=== PATIENT | male | born 1955 | race Caucasian/White ===

== ENCOUNTER 2016-05-08 10:58 | Observation (INO) | payer OTHER ==
[2016-05-08] VITALS (10 sets, daily range): BP systolic 100–148; BP diastolic 60–77; PULSE 81–110; RESP 16–28; TEMP 97.1–98.5; O2SAT 94–98
[~2016-05-08] VITALS: Ht 177.8 cm; Wt 116.1 kg
[2016-05-08 11:59] LABS: AUTOMATED NEUTROPHIL # 9.4 TH/MM3 (1.8-7.7); BASOPHIL # 0.1 TH/MM3 (0-0.2); BASOPHIL % 0.5 % (0.0-2.0); EOSINOPHIL # 0.2 TH/MM3 (0-0.4); EOSINOPHIL % 1.7 % (0.0-4.0); HEMATOCRIT 44.5 % (39.0-51.0); HEMO FLAGS DIFF FINAL; LYMPH % 11.1 % (9.0-44.0); LYMPHOCYTE # 1.3 TH/MM3 (1.0-4.8); MEAN CELL VOLUME 96.2 FL (80.0-100.0); MEAN CORPUSCULAR HEMOGLOBIN 32.4 PG (27.0-34.0); MEAN CORPUSCULAR HGB CONC 33.7 % (32.0-36.0); MONO % 5.3 % (0.0-8.0); NEUT % 81.4 % (16.0-70.0); PLATELET COUNT 257 TH/MM3 (150-450); RED BLOOD COUNT 4.62 MIL/MM3 (4.50-5.90); RED CELL DISTRIBUTION WIDTH 14.5 % (11.6-17.2); WHITE BLOOD COUNT 11.5 TH/MM3 (4.0-11.0)
[2016-05-08 12:26] LABS: ALT (GPT) 22 U/L (12-78); AST (GOT) 19 U/L (15-37); BICARBONATE 19.7 MEQ/L (21.0-32.0); BLOOD UREA NITROGEN 19 MG/DL (7-18); GLOMERULAR FILTRATION RATE 58 ML/MIN (>89)
[2016-05-08 12:27] LABS: ALKALINE PHOSPHATASE 101 U/L (45-117); TOTAL BILIRUBIN ADULT 0.5 MG/DL (0.2-1.0)
--- NOTE | 2016-05-08 12:28 | PD ---
HPI Chief Complaint: Respiratory Symptoms Time Seen by Provider: 12:23 Travel History International Travel<30 days: No Contact w/Intl Traveler<30days: No Traveled to known affect area: No History of Present Illness HPI 60-year-old male that presents to the ED for evaluation of shortness of breath has been progressively getting worse for the past 5 days. Per patient today she went to the [place] for evaluation of the shortness of breath. On examination apparently patient was found to have an O2 sat of 92 he was complaining of some chest pressure as well as being tachycardic. Patient does have a history of A. fib and takes Coumadin as well as antiarrhythmics for this. Patient states that he has had no issues with this. Per patient for the past 5 days his been having some cough and runny nose with sneezing and progressively worsening shortness of breath. Per patient he has no inhalers or oxygen at home. He does have a remote history of smoking. No history of GA or STEMI. No history of stenting. Denies any abdominal pain. Nausea or vomiting. Per patient he does describe having pressure on his chest but not really pain. Patient was given one breathing treatment in the ambulance on the way here with relief of some of the shortness of breath but he still has the chest pressure and some shortness of breath present. He has no allergies to medication. He denies any other medical problems at this time. Patient was sent here by the [place] for evaluation of this. Per patient the pain in the chest is 6 out of 10 and feels more like a pressure. Does not radiate. Nothing makes it better or worse. PFSH Past Medical History Hx Anticoagulant Therapy: Yes (COUMADIN ) Atrial Fibrillation: Yes Cardiovascular Problems: Yes (A-FIB ) High Cholesterol: Yes Diabetes: Yes Patient Takes Glucophage: Yes Diminished Hearing: No GERD: Yes Gout: Yes Hypertension: Yes Medical other: Yes (OBESITY) Musculoskeletal: Yes (LOWER BACK PAIN ) Neurologic: Yes (DB NEUROPATHY) Tetanus Vaccination: Unknown Influenza Vaccination: No Social History Alcohol Use: No Tobacco Use: No (QUIT 1996) Substance Use: No Allergies-Medications (Allergen,Severity, Reaction): Coded Allergies: No Known Allergies (Unverified , 05/08/16) Reported Meds & Prescriptions Reported Meds & Active Scripts Active Reported Diltiazem (Diltiazem HCl) 120 Mg Tab 120 Mg PO DAILY Ranitidine (Ranitidine HCl) 300 Mg Tab 300 Mg PO HS Metformin (Metformin HCl) 500 Mg Tab 500 Mg PO BIDPC With meals Loratadine 10 Mg Tab 10 Mg PO DAILY Gemfibrozil 600 Mg Tab 600 Mg PO BIDAC Take 30 minutes prior to breakfast and dinner. Allopurinol 300 Mg Tab 300 Mg PO BID Diclofenac Topical 1% Gel 1 Applic TOPICAL QID Warfarin 7.5 Mg Tab 7.5 Mg PO DAILY Warfarin 5 Mg Tab 5 Mg PO DAILY Omeprazole 20 Mg Tab 20 Mg PO DAILY Lisinopril 40 Mg Tab 40 Mg PO DAILY Salsalate 500 Mg Tab 500 Mg PO BID Oxycodone (Oxycodone HCl) 5 Mg Cap 5 Mg PO Q8H PRN Review of Systems General / Constitutional: No: Fever, Chills, Weight Gain, Weight Loss, Other Eyes: No: Diploplia, Blurred Vision, Photophobia, Drainage, Redness, Foreign Body Sensation, Pain, Tearing, Blind Spots, Visual changes, Blindness, Other HENT: Positive: Sore Throat, Rhinitis, Congestion, No: Headaches, Vertigo, Lightheadedness, Rhinorrhea, Nosebleed, Neck Stiffness, Neck Pain, Masses, Gingival Bleeding, Dental Difficulties, Ear Discharge, Earache, Other Cardiovascular: Positive: Chest Pain or Discomfort, Irregular Rhythm, Tachycardia, No: Palpitations, Diaphoresis, Syncope, Dyspnea on exertion, Varicosities, Edema, Cyanosis, Varicosities, Phlebitis, Claudication, Other Respiratory: Positive: Cough, Shortness of Breath, Wheezing, Sneezing, No: Orthopnea, Hemoptysis, Stridor, Night Sweats, Pleuritic Pain, Other Gastrointestinal: No: Nausea, Vomiting, Diarrhea, Abdominal Pain, Hematemesis, Hematochezia, Constipation, Changes in Bowel Habits, Indigestion, Dysphagia, Loss of Appetite, Other Genitourinary: No: Urgency, Frequency, Dysuria, Nocturia, Hematuria, Decreased Urinary Output, Oliguria, Hesitancy, Dribbling, Incontinence, Pelvic Pain, Flank Pain, Dyspareunia, Discharge, Dysmenorrhea, Menorrhagia, Metorrhagia, Vaginal Bleeding, Other Musculoskeletal: No: Myalgias, Arthralgias, Limited ROM, Weakness, Cramping, Edema, Pain, Atrophy, Other Skin: No Rash, No Itching, No Dryness, No Lumps, No Hives, No Change in Pigmentation, No Change in nails, No Alopecia, No Lesions, No Breast Lumps, No Breast Tenderness, No Breast Swelling, No Other Neurologic: No: Weakness, Dizziness, Syncope, Focal Abnormalities, Coordination Problem, Tremor, Ataxia, Headache, Change in Mentation, Slurred Speech, Paresthesia, Incontinence, Seizures, Sensory Disturbance, Other Psychiatric: No: Anxiety, Depression, Suicidal Ideations, Disorder of Thought, Mood Disorder, Substance Abuse, Homicidal Ideation, Other Endocrine: No: Heat Intolerance, Cold Intolerance, Polyuria, Polydipsia, Other Hematologic/Lymphatic: No: Easy Bruising, Lymph Node Enlargement, Other Physical Exam Narrative GENERAL: SKIN: Warm and dry. HEAD: Atraumatic. Normocephalic. EYES: Pupils equal and round 4 mm reactive to light and accommodation. No scleral icterus. No injection or drainage. ENT: No nasal bleeding or discharge. Mucous membranes pink and moist. Tongue is midline. No uvula deviation. NECK: Trachea midline. No JVD. CARDIOVASCULAR: Irregular rate and rhythm. No murmurs, S3, S4 noted. RESPIRATORY: No accessory muscle use. Expiratory rales heard in all lung herrera.. Breath sounds equal bilaterally. GASTROINTESTINAL: Abdomen soft, non-tender, nondistended. Hepatic and splenic margins not palpable. MUSCULOSKELETAL: Extremities without clubbing, cyanosis, or edema. No obvious deformities. Full range of motion of the upper and lower extremities bilaterally. 2+ pulses bilaterally. NEUROLOGICAL: Awake and alert. No obvious cranial nerve deficits. Motor grossly within normal limits. Five out of 5 muscle strength in the arms and legs. Normal speech. PSYCHIATRIC: Appropriate mood and affect; insight and judgment normal. Data Data Last Documented VS Vital Signs Date Time Temp Pulse Resp B/P Pulse Ox O2 Delivery O2 Flow Rate FiO2 05/08/16 14:49 100 17 117/69 95 Room Air 05/08/16 12:00 4 05/08/16 11:05 98.5 Orders Chest, Single Ap (05/08/16 ) Complete Blood Count With Diff (05/08/16 11:25) Comprehensive Metabolic Panel (05/08/16 11:25) Electrocardiogram (05/08/16 ) Troponin I (05/08/16 12:15) B-Type Natriuretic Peptide (05/08/16 12:15) Prothrombin Time / Inr (Pt) (05/08/16 12:15) Act Partial Throm Time (Ptt) (05/08/16 12:15) Albuterol Neb (Albuterol Neb) (05/08/16 12:30) Ceftriaxone Inj (Rocephin Inj) (05/08/16 14:00) Azithromycin Inj (Zithromax Inj) (05/08/16 14:00) Blood Culture (05/08/16 14:17) Influenzae A/B Antigen (05/08/16 14:17) Labs Laboratory Tests Test 05/08/16 05/08/16 11:35 12:29 White Blood Count 11.5 TH/MM3 Red Blood Count 4.62 MIL/MM3 Hemoglobin 15.0 GM/DL Hematocrit 44.5 % Mean Corpuscular Volume 96.2 FL Mean Corpuscular Hemoglobin 32.4 PG Mean Corpuscular Hemoglobin 33.7 % Concent Red Cell Distribution Width 14.5 % Platelet Count 257 TH/MM3 Mean Platelet Volume 9.9 FL Neutrophils (%) (Auto) 81.4 % Lymphocytes (%) (Auto) 11.1 % Monocytes (%) (Auto) 5.3 % Eosinophils (%) (Auto) 1.7 % Basophils (%) (Auto) 0.5 % Neutrophils # (Auto) 9.4 TH/MM3 Lymphocytes # (Auto) 1.3 TH/MM3 Monocytes # (Auto) 0.6 TH/MM3 Eosinophils # (Auto) 0.2 TH/MM3 Basophils # (Auto) 0.1 TH/MM3 CBC Comment DIFF FINAL Differential Comment Sodium Level 139 MEQ/L Potassium Level 3.7 MEQ/L Chloride Level 108 MEQ/L Carbon Dioxide Level 19.7 MEQ/L Anion Gap 11 MEQ/L Blood Urea Nitrogen 19 MG/DL Creatinine 1.26 MG/DL Estimat Glomerular Filtration 58 ML/MIN Rate Random Glucose 158 MG/DL Calcium Level 9.1 MG/DL Total Bilirubin 0.5 MG/DL Aspartate Amino Transf 19 U/L (AST/SGOT) Alanine Aminotransferase 22 U/L (ALT/SGPT) Alkaline Phosphatase 101 U/L Troponin I LESS THAN 0.02 NG/ML B-Type Natriuretic Peptide 126 PG/ML Total Protein 7.3 GM/DL Albumin 3.2 GM/DL Prothrombin Time 31.5 SEC Prothromb Time International 2.7 RATIO Ratio Activated Partial 47.4 SEC Thromboplast Time MDM Medical Decision Making Medical Screen Exam Complete: Yes Emergency Medical Condition: Yes Medical Record Reviewed: Yes Interpretation(s) CBC & BMP Diagram 05/08/16 11:35 BNp in the 200s troponin negative INR 2.7 with elevated coags Chest x-ray showed parenchymal changes on the lower left lung. Differential Diagnosis Pneumonia versus edema versus CHF versus STEMI versus an STEMI versus A. fib versus chest pain versus atypical chest pain versus COPD Narrative Course 60-year-old male that presents to the ED for evaluation of chest discomfort and shortness of breath. Patient was properly examined and was found to have signs and symptoms of unclear etiology at this time. He does have risk factors for severe disease. Patient again relieved with one albuterol inhaler. Patient was given 1 more dose here as his ribs appear to be limited but he is still satting in 96. He does appear to be slightly tachypneic although it appears to have improved from before coming. Patient agrees first to proceed with blood work and imaging. Labs and imaging showed what appears to be possible early pneumonia. . Patient still symptomatic with shortness of breath and chest pressure. Case was discussed in my attending who evaluated the patient with me and recommends admission for community-acquired pneumonia as well as monitoring secondary to the A. fib which the heart rate seems to be increasing in the 110s.. Patient was started on Rocephin and azithromycin IV. This was discussed with patient who agrees to admission. Dr. Raymundo agrees to admission. Procedures EKG Prior to Arrival: No Diagnosis Primary Impression: CAP (community acquired pneumonia) Additional Impression: A-fib Qualified Code: I48.2 - Chronic atrial fibrillation Admitting Information Admitting Physician Requests: Admit Elie Domínguez May 08, 2016 12:27
[2016-05-08] MEDS ORDERED: RESP: ALBUTEROL 2.5 MG/3 ML NEB (SCH) INH ONE (12:30)
[2016-05-08] MEDS ORDERED: DICL1GEL7 TOPICAL (12:40)
[2016-05-08] MEDS ORDERED: DILT120T PO (12:40)
[2016-05-08] MEDS ORDERED: RANI300T PO (12:40)
[2016-05-08] MEDS ORDERED: METF500T PO (12:40)
[2016-05-08] MEDS ORDERED: SALS500T PO (12:40)
[2016-05-08] MEDS ORDERED: GEMF600T PO (12:40)
[2016-05-08] MEDS ORDERED: WARF-23 PO (12:40)
[2016-05-08] MEDS ORDERED: OMEP20TA PO (12:40)
[2016-05-08] MEDS ORDERED: LISI40TA PO (12:40)
[2016-05-08] MEDS ORDERED: WARF-21 PO (12:40)
[2016-05-08] MEDS ORDERED: ALLO300T2 PO (12:40)
[2016-05-08] MEDS ORDERED: LORA10TA PO (12:40)
[2016-05-08] MEDS ORDERED: OXYC1CAP PO (12:40)
[2016-05-08 12:44] LABS: APTT (PATIENT) 47.4 SEC (24.3-30.1); INTERNATIONAL NORMALIZED RATIO 2.7 RATIO; PROTHROMBIN TIME - PATIENT 31.5 SEC (9.8-11.6)
[2016-05-08 12:57] LABS: ANION GAP 11 MEQ/L (5-15); CHLORIDE 108 MEQ/L (98-107); POTASSIUM 3.7 MEQ/L (3.5-5.1); SODIUM (NA) 139 MEQ/L (136-145)
--- NOTE | 2016-05-08 13:22 | RADRPT ---
EXAM DATE/TIME: 05/08/2016 11:55 [facility] COMPARISON: No previous studies available for comparison. INDICATIONS : Pain and shortness of breath. MEDICAL HISTORY : None. SURGICAL HISTORY : None. ENCOUNTER: Initial ACUITY: 2 weeks PAIN SCORE: 3/10 LOCATION: Bilateral chest FINDINGS: There are minimal parenchymal changes present in the left base. Right lung is clear. Heart is minim ally enlarged. Pulmonary vascularity is normal. There is no pneumothorax. CONCLUSION: Minimal parenchymal changes left base. Fitz Lowery MD FACR on May 08, 2016 at 13:13 Board Certified Radiologist. This report was verified electronically.
[2016-05-08] MEDS ORDERED: cefTRIAXone INJ 1,000 MG in SODIUM CHLORIDE 0.9% INJ 100 ML IV ONE (14:00)
[2016-05-08] MEDS ORDERED: AZITHROMYCIN INJ 500 MG in SODIUM CHLOR 0.9% 250 ML INJ 250 ML IV ONE (14:00)
[2016-05-08] MEDS ORDERED: ACETAMINOPHEN 325 MG TAB PO PRN ×2 (16:00)
[2016-05-08] MEDS ORDERED: NALOXONE HCL 0.4 MG/ML AMP IV PRN (16:00)
[2016-05-08] MEDS ORDERED: SENNOSIDES 8.6 MG TAB PO PRN (16:00)
[2016-05-08] MEDS ORDERED: SODIUM CHLORIDE 0.9% FLUSH 5 ML FLUSH FLUSH PRN (16:00)
[2016-05-08] MEDS ORDERED: ZOLPIDEM TARTRATE 5 MG TAB PO PRN (16:00)
[2016-05-08] MEDS ORDERED: guaiFENesin/CODEINE SYRUP 200 MG/20 MG/10 ML CUP PO PRN (16:00)
[2016-05-08] MEDS ORDERED: RESP: IPRATROPIUM 0.5 MG/2.5 ML NEB NEB PRN (16:30)
--- NOTE | 2016-05-08 16:33 | HHI.HP ---
[facility] Service [facility] Primary Care Physician May[facility] Admission Diagnosis MAGdevynAndreina larsen Diagnoses: Chief Complaint: Shortness of breath, coughing/sneezing, palpitations Travel History International Travel<30 Days: No Contact w/Intl Traveler <30 Da: No Traveled to Known Affected Are: No History of Present Illness The patient is a 60-year-old male with a past medical history of atrial fibrillation who is presenting to the hospital with shortness of breath, lightheadedness, headache, coughing and sneezing. The patient says he has been having various symptoms for the past week. He believes the symptoms are secondary to atrial fibrillation. He says he is on diltiazem and follows up at the [place] for his atrial fibrillation. He said that this morning he came down with palpitations and went to the [place] clinic where he was referred to the hospital. The patient says that over the past week he has developed symptoms such as shortness of breath, lightheadedness, coughing and sneezing. He says he has not been having a productive cough. He denies any fevers. He has been having left-sided rib pain associated with coughing. He has been tolerating a diet. He says he has not been taking any over the counter medications. He says he did not get the flu shot this year. Review of Systems Constitutional: COMPLAINS OF: Weight loss, DENIES: Fever, Change in appetite Respiratory: COMPLAINS OF: Cough, Shortness of breath, DENIES: Sputum production Cardiovascular: COMPLAINS OF: Dyspnea on Exertion, DENIES: Lower Extremity Edema Gastrointestinal: DENIES: Constipation, Diarrhea Musculoskeletal: COMPLAINS OF: Back pain Neurologic: COMPLAINS OF: Headache Past Family Social History Past Medical History Atrial fibrillation Gout Diabetes Low back pain Allergies: Coded Allergies: No Known Allergies (Unverified , 05/08/16) Active Ordered Medications Current Medications Medications (Trade) Dose Ordered Sig/Mile Route Start Time Stop Time Status Last Admin (Zyloprim) 300 mg BID PO 05/08/16 21:00 UNV (Lopid) 600 mg BIDAC PO 05/08/16 16:00 UNV (Prinivil) 40 mg DAILY PO 05/08/16 16:00 UNV (Claritin) 10 mg DAILY PO 05/09/16 09:00 UNV (Zantac) 300 mg HS PO 05/08/16 21:00 UNV (Coumadin) 5 mg DAILY PO 05/09/16 09:00 UNV Non-Formulary Medication 1 applic QID TOPICAL 05/08/16 18:00 UNV Non-Formulary Medication 500 mg 500 mg BID PO 05/08/16 21:00 UNV (Coumadin Consult Pharmacy) 0 ml @ 0 mls/hr UNSCH OTHER 05/08/16 16:00 UNV Diltiazem HCl 60 mg 60 mg QID PO 05/08/16 16:00 UNV (NS 1000 ml Inj) 1,000 ml @ 100 mls/hr Q10H IV 05/08/16 15:55 05/09/16 01:54 UNV (NS Flush) 2 ml UNSCH PRN FLUSH 05/08/16 16:00 UNV (NS Flush) 2 ml BID FLUSH 05/08/16 21:00 UNV (Tylenol) 650 mg Q4H PRN PO 05/08/16 16:00 UNV (Colace) 100 mg Q12H PO 05/08/16 16:00 UNV (Senokot) 17.2 mg Q12H PRN PO 05/08/16 16:00 UNV (Ambien) 5 mg HS PRN PO 05/08/16 16:00 UNV (Tylenol) 650 mg Q6H PRN PO 05/08/16 16:00 UNV (Roxicodone) 10 mg Q4H PRN PO 05/08/16 16:00 UNV (Roxicodone) 5 mg Q4H PRN PO 05/08/16 16:00 UNV Naloxone HCl 0.4 mg 0.4 mg UNSCH PRN IV 05/08/16 16:00 UNV Ceftriaxone Sodium 1000 mg/ Sodium Chloride 100 ml @ 200 mls/hr Q24H IV 05/09/16 14:00 UNV Azithromycin 500 mg/Sodium Chloride 250 ml @ 250 mls/hr Q24H IV 05/08/16 16:00 UNV (Zithromax Inj/ NS 250 ml Inj) 250 ml @ 250 mls/hr ONCE ONCE IV 05/09/16 14:00 05/09/16 14:59 UNV (Robitussin Ac 200-20 Mg/10 ml Liq) 10 ml Q6H PRN PO 05/08/16 16:00 UNV Family History Lung cancer Social History The patient quit smoking a long time ago. He does not drink alcohol. He denies illicit drug use. Physical Exam Vital Signs Vital Signs Date Time Temp Pulse Resp B/P Pulse Ox O2 Delivery O2 Flow Rate FiO2 05/08/16 14:49 100 17 117/69 95 Room Air 05/08/16 13:00 107 25 109/68 97 Room Air 05/08/16 12:00 110 25 100/60 98 Nasal Cannula 4 05/08/16 11:06 98 Room Air 05/08/16 11:05 98.5 102 28 119/74 98 05/08/16 11:05 98.5 102 28 119/74 98 Nasal Cannula 4 Physical Exam GENERAL: This is a well-nourished, well-developed patient, in no apparent distress. SKIN: No rashes, ecchymoses or lesions. Cool and dry. HEAD: Atraumatic. Normocephalic. No temporal or scalp tenderness. EYES: Pupils equal round and reactive. Extraocular motions intact. No scleral icterus. No injection or drainage. ENT: Nose without bleeding, purulent drainage or septal hematoma. Throat without erythema, tonsillar hypertrophy or exudate. Uvula midline. Airway patent. NECK: Trachea midline. No JVD or lymphadenopathy. Supple, nontender, no meningeal signs. CARDIOVASCULAR: Tachycardic, irregularly irregular rhythm. RESPIRATORY: Crackles appreciated. GASTROINTESTINAL: Abdomen soft, non-tender, nondistended. No hepato-splenomegaly , or palpable masses. No guarding. MUSCULOSKELETAL: Extremities without clubbing, cyanosis, or edema. No joint tenderness, effusion, or edema noted. NEUROLOGICAL: Awake and alert. Cranial nerves II through XII intact. Motor and sensory grossly within normal limits. Five out of 5 muscle strength in all muscle groups. Normal speech. PSYCH: Mood and affect appropriate. Laboratory Laboratory Tests Test 05/08/16 05/08/16 11:35 12:29 White Blood Count 11.5 Red Blood Count 4.62 Hemoglobin 15.0 Hematocrit 44.5 Mean Corpuscular Volume 96.2 Mean Corpuscular Hemoglobin 32.4 Mean Corpuscular Hemoglobin 33.7 Concent Red Cell Distribution Width 14.5 Platelet Count 257 Mean Platelet Volume 9.9 Neutrophils (%) (Auto) 81.4 Lymphocytes (%) (Auto) 11.1 Monocytes (%) (Auto) 5.3 Eosinophils (%) (Auto) 1.7 Basophils (%) (Auto) 0.5 Neutrophils # (Auto) 9.4 Lymphocytes # (Auto) 1.3 Monocytes # (Auto) 0.6 Eosinophils # (Auto) 0.2 Basophils # (Auto) 0.1 CBC Comment DIFF FINAL Differential Comment Sodium Level 139 Potassium Level 3.7 Chloride Level 108 Carbon Dioxide Level 19.7 Anion Gap 11 Blood Urea Nitrogen 19 Creatinine 1.26 Estimat Glomerular Filtration 58 Rate Random Glucose 158 Calcium Level 9.1 Total Bilirubin 0.5 Aspartate Amino Transf 19 (AST/SGOT) Alanine Aminotransferase 22 (ALT/SGPT) Alkaline Phosphatase 101 Troponin I LESS THAN 0.02 B-Type Natriuretic Peptide 126 Total Protein 7.3 Albumin 3.2 Prothrombin Time 31.5 Prothromb Time International 2.7 Ratio Activated Partial 47.4 Thromboplast Time Date/Time Procedure Status Source Growth 05/08/16 14:39 Influenza Types A,B Antigen (HONG) - Final Complete Nasal Washing NEGATIVE FOR FLU A AND B ANTIGEN.... 05/08/16 14:39 Aerobic Blood Culture Received Blood Peripheral Pending 05/08/16 14:39 Anaerobic Blood Culture Received Blood Peripheral Pending Result Diagram: 05/08/16 1135 05/08/16 1135 Assessment and Plan Assessment and Plan Pneumonia The patient presents with shortness of breath and cough. He has a leukocytosis of 11.5. Chest x-ray with minimal parenchymal changes at the left base. Influenza test negative. - Continue ceftriaxone and azithromycin. - Urinary Legionella and streptococcal antigens. - oxygen and nebs as needed. - sputum culture and gram stain. Atrial fibrillation The patient is on diltiazem and Coumadin as an outpatient. He felt palpitations this morning. Heart rate has been in the low 100s. Likely exacerbated by respiratory infection. Initial troponin negative. - Increased diltiazem and monitor. - Continue Coumadin. INR is therapeutic. Pharmacy to assist with dosing. - Trend troponins and monitor on telemetry. Rib pain Secondary to coughing from respiratory infection. EKG with atrial fibrillation , no obvious ischemic changes. - Trend troponins. - Telemetry. - Pain control as needed. Diabetes On metformin as an outpatient. - Hold metformin. - Insulin sliding scale. PPx: Coumadin. Code Status DNR Discussed Condition With Elie Domínguez pt. Yovany Case DO May 08, 2016 16:33
[2016-05-08] MEDS: DOCUSATE SODIUM 100 MG CAP PO SCH (18:00)
[2016-05-08] MEDS ORDERED: WARFARIN SOD 5 MG TAB PO SCH (18:00)
[2016-05-08] MEDS ORDERED: DICLOFENAC TOPICAL SCH (18:00)
[2016-05-08] MEDS: LISINOPRIL 20 MG TAB PO SCH (18:01)
[2016-05-08] MEDS: SODIUM CHLOR 0.9% 1000 ML INJ 1,000 ML IV SCH ×2 (18:01→22:20)
[2016-05-08] MEDS: DILTIAZEM HCL 60 MG TAB PO SCH ×2 (18:01→21:06)
[2016-05-08] MEDS: GEMFIBROZIL 600 MG TAB PO SCH (18:20)
[2016-05-08] MEDS: SODIUM CHLORIDE 0.9% FLUSH 5 ML FLUSH FLUSH SCH (20:56)
[2016-05-08] MEDS ORDERED: FAMOTIDINE 20 MG TAB PO SCH (21:00)
[2016-05-08] MEDS: INSULIN ASPART SUPPLEMENTAL SCALE SQ SCH (21:00)
[2016-05-08] MEDS ORDERED: SALSALATE 500 MG PO SCH (21:00)
[2016-05-08] MEDS: ALLOPURINOL 300 MG TAB PO SCH (21:06)
[2016-05-09 04:00] VITALS: BP 114/70; PULSE 97; RESP 16; TEMP 99.7; O2SAT 93
[2016-05-09] MEDS: DOCUSATE SODIUM 100 MG CAP PO SCH (06:38)
[2016-05-09] MEDS: GEMFIBROZIL 600 MG TAB PO SCH (06:38)
[2016-05-09] MEDS: INSULIN ASPART SUPPLEMENTAL SCALE SQ SCH ×2 (06:44→11:00)
[2016-05-09 06:55] LABS: INTERNATIONAL NORMALIZED RATIO 2.7 RATIO; PROTHROMBIN TIME - PATIENT 31.6 SEC (9.8-11.6)
[2016-05-09 08:00] VITALS: BP 99/61; PULSE 94; RESP 18; TEMP 99.1; O2SAT 91
[2016-05-09] MEDS: SODIUM CHLORIDE 0.9% FLUSH 5 ML FLUSH FLUSH SCH (09:00)
[2016-05-09] MEDS ORDERED: LORATADINE 10 MG TAB PO SCH (09:00)
[2016-05-09 09:37] VITALS: BP 116/73
[2016-05-09] MEDS: DILTIAZEM HCL 60 MG TAB PO SCH ×2 (09:37→13:49)
[2016-05-09] MEDS: LISINOPRIL 20 MG TAB PO SCH (09:37)
[2016-05-09] MEDS: ALLOPURINOL 300 MG TAB PO SCH (09:37)
[2016-05-09 10:30] VITALS: O2SAT 94
[2016-05-09 12:00] VITALS: BP 112/76; PULSE 85; RESP 20; TEMP 96.4; O2SAT 93
[2016-05-09] MEDS ORDERED: AZIT250T3 PO (12:29)
[2016-05-09] MEDS ORDERED: DILT-64 PO (12:29)
[2016-05-09] MEDS ORDERED: OXYC1CAP PO (12:29)
[2016-05-09] MEDS ORDERED: VENTAER INH (12:29)
--- NOTE | 2016-05-09 12:30 | HHI.DCPOC ---
Discharge Care Plan Diagnosis: (1) CAP (community acquired pneumonia) (2) A-fib Goals to Promote Your Health * To prevent worsening of your condition and complications * To maintain your health at the optimal level Directions to Meet Your Goals Take your medications as prescribed Follow your dietary instruction Follow activity as directed Keep your appointments as scheduled Take your immunizations and boosters as scheduled If your symptoms worsen call your PCP, if no PCP go to Urgent Care Center or Emergency Room Smoking is Dangerous to Your Health. Avoid second hand smoke Call the 24-hour hour crisis hotline for domestic abuse at Yovany Case DO May 09, 2016 12:30
--- NOTE | 2016-05-09 12:36 | HHI.PR ---
Subjective Remarks The patient was sitting up in a chair. He said he felt well. He had no shortness of breath. He had no chest pain. He denied any palpitations. He was coughing and sneezing. He had no difficulty ambulating. He wanted to go home. Discussed with nursing. Objective Vitals Vital Signs Date Time Temp Pulse Resp B/P Pulse Ox O2 Delivery O2 Flow Rate FiO2 05/09/16 09:37 116/73 05/09/16 08:00 99.1 94 18 99/61 91 05/09/16 04:00 99.7 97 16 114/70 93 05/08/16 22:14 98 Nasal Cannula 2.00 05/08/16 21:55 86 05/08/16 21:55 97.1 81 20 131/77 94 05/08/16 21:15 89 18 126/76 98 Room Air 05/08/16 20:13 95 05/08/16 18:03 93 16 131/74 95 Room Air 05/08/16 16:30 92 18 148/72 95 Room Air 05/08/16 14:49 100 17 117/69 95 Room Air 05/08/16 13:00 107 25 109/68 97 Room Air I/O 05/08/16 05/08/16 05/08/16 05/09/16 05/09/16 05/09/16 07:00 15:00 23:00 07:00 15:00 23:00 Intake Total 240 ml 1537 ml Balance 240 ml 1537 ml Intake Oral 240 ml 720 ml IV Total 817 ml # Voids 2 Result Diagram: 05/08/16 1135 05/08/16 1135 Imaging Last Impressions Chest X-Ray 05/08/16 0000 Signed Impressions: Service Date/Time: Sunday, May 08, 2016 11:55 - CONCLUSION: Minimal parenchymal changes left base. Fitz Lowery MD FACR Objective Remarks GENERAL: This is a well-nourished, well-developed patient, in no apparent distress. SKIN: No rashes, ecchymoses or lesions. Cool and dry. HEAD: Atraumatic. Normocephalic. No temporal or scalp tenderness. EYES: Pupils equal round and reactive. Extraocular motions intact. No scleral icterus. No injection or drainage. ENT: Nose without bleeding, purulent drainage or septal hematoma. Throat without erythema, tonsillar hypertrophy or exudate. Uvula midline. Airway patent. NECK: Trachea midline. No JVD or lymphadenopathy. Supple, nontender, no meningeal signs. CARDIOVASCULAR: Tachycardic, irregularly irregular rhythm. RESPIRATORY: Clear to auscultation bilaterally. GASTROINTESTINAL: Abdomen soft, non-tender, nondistended. No hepato-splenomegaly , or palpable masses. No guarding. MUSCULOSKELETAL: Extremities without clubbing, cyanosis, or edema. No joint tenderness, effusion, or edema noted. NEUROLOGICAL: Awake and alert. Cranial nerves II through XII intact. Motor and sensory grossly within normal limits. Five out of 5 muscle strength in all muscle groups. Normal speech. PSYCH: Mood and affect appropriate. Medications and IVs Current Medications Medications (Trade) Dose Ordered Sig/Mile Route Start Time Stop Time Status Last Admin (Zyloprim) 300 mg BID PO 05/08/16 21:00 05/09/16 09:37 (Lopid) 600 mg BIDAC PO 05/08/16 18:00 05/09/16 06:38 (Prinivil) 40 mg DAILY PO 05/08/16 18:00 05/09/16 09:37 (Claritin) 10 mg DAILY PO 05/09/16 09:00 05/09/16 09:37 (Pepcid) 20 mg HS PO 05/08/16 21:00 05/08/16 21:06 (Coumadin) 5 mg SuTuThFrSa@16 PO 05/08/16 18:00 05/08/16 18:01 Patient Own Medication PT OWN MED: Diclofe... QID TOPICAL 05/08/16 18:00 Hold Patient Own Medication PT OWN MED: Salsal... BID PO 05/08/16 21:00 Hold (Coumadin Consult Pharmacy) 0 ml @ 0 mls/hr UNSCH OTHER 05/08/16 16:00 (Cardizem) 60 mg QID PO 05/08/16 18:00 05/09/16 09:37 (NS Flush) 2 ml UNSCH PRN FLUSH 05/08/16 16:00 (NS Flush) 2 ml BID FLUSH 05/08/16 21:00 05/08/16 20:56 (Tylenol) 650 mg Q4H PRN PO 05/08/16 16:00 (Colace) 100 mg Q12H PO 05/08/16 18:00 05/09/16 06:38 (Senokot) 17.2 mg Q12H PRN PO 05/08/16 16:00 (Ambien) 5 mg HS PRN PO 05/08/16 16:00 (Tylenol) 650 mg Q6H PRN PO 05/08/16 16:00 (Roxicodone) 10 mg Q4H PRN PO 05/08/16 16:00 (Roxicodone) 5 mg Q4H PRN PO 05/08/16 16:00 05/09/16 09:40 Naloxone HCl 0.4 mg 0.4 mg UNSCH PRN IV 05/08/16 16:00 Ceftriaxone Sodium 1000 mg/ Sodium Chloride 100 ml @ 200 mls/hr Q24H IV 05/09/16 16:00 (Zithromax Inj/ NS 250 ml Inj) 250 ml @ 250 mls/hr Q24H IV 05/09/16 15:00 (Robitussin Ac 200-20 Mg/10 ml Liq) 10 ml Q6H PRN PO 05/08/16 16:00 (Coumadin) 7.5 mg MoWe@16 PO 05/11/16 16:00 A/P Assessment and Plan Pneumonia/ URI The patient presents with shortness of breath, coughing and sneezing. He has a leukocytosis of 11.5. Chest x-ray with minimal parenchymal changes at the left base. Influenza test negative. Urinary Legionella and streptococcal antigens were negative. Likely a viral syndrome with cough and sneezing. - started on ceftriaxone and azithromycin. Complete a course of azithromycin on discharge. - oxygen and nebs as needed. - sputum culture and gram stain. - albuterol upon discharge. - outpt follow-up. Atrial fibrillation The patient is on diltiazem and Coumadin as an outpatient. He felt palpitations the morning of admission. Heart rate has been in the low 100s. Likely exacerbated by respiratory infection. Troponins were negative. - Increased diltiazem to 240 mg daily. - Continue Coumadin. INR is therapeutic. Pharmacy to assist with dosing. - outpt follow-up. Rib pain Secondary to coughing from respiratory infection. EKG with atrial fibrillation , no obvious ischemic changes. Trops negative. Resolved. - Telemetry. - Pain control as needed. Diabetes On metformin as an outpatient. - Hold metformin. - Insulin sliding scale. PPx: Coumadin. Discharge Planning D/c home. Yovany Case DO May 09, 2016 12:36
--- NOTE | 2016-05-09 13:04 | EKG ---
Date Performed: 05/08/2016 Time Performed: 11:34:02 PTAGE: 60 years EKG: ATRIAL FIBRILLATION WITH RAPID VENTRICULAR RESPONSE MARKED LEFT AXIS DEVIATION PATTERN CONS ISTENT WITH PULMONARY DISEASE ABNORMAL ECG NO PREVIOUS TRACING DOCTOR: Nabil Gudino Interpretating Date/Time 05/09/2016 12:59:37
[2016-05-09] MEDS ORDERED: AZITHROMYCIN INJ 500 MG in SODIUM CHLOR 0.9% 250 ML INJ 250 ML IV ONE (14:00)
[2016-05-09] MEDS ORDERED: AZITHROMYCIN INJ 500 MG in SODIUM CHLOR 0.9% 250 ML INJ 250 ML IV SCH (15:00)
[2016-05-09] MEDS ORDERED: cefTRIAXone INJ 1,000 MG in SODIUM CHLORIDE 0.9% INJ 100 ML IV SCH (16:00)
[2016-05-11] MEDS ORDERED: WARFARIN SOD 7.5 MG TAB PO SCH (16:00)
== END 2016-05-09 17:14 | disposition home or self-care (01) ==
LOC: NEDAMB 10:58 → NEDA 14:54 → INTOOBSV 14:54 → N06B 21:33 → UNDODISIN 05-09 17:14
PROVIDERS: ADMIT Hospitalist; ATTEND Hospitalist
DX: J18.9 Pneumonia, unspecified organism (principal); I48.2 Chronic atrial fibrillation; I10 Essential (primary) hypertension; J06.9 Acute upper respiratory infection, unspecified; E11.9 Type 2 diabetes mellitus without complications; K21.9 Gastro-esophageal reflux disease without esophagitis; E78.00 Pure hypercholesterolemia, unspecified; M10.9 Gout, unspecified; Z66 Do not resuscitate; Z79.84 Long term (current) use of oral hypoglycemic drugs; Z87.891 Personal history of nicotine dependence
CPT/HCPCS: 71010; 80053; 82948; 83880; 84484; 85025; 85610; 85730; 87040; 87205; 87449; 87804; 93005; 94640; 94664; 96374; 97163; 99285; G0378; J0456; J0696; J7030; J7050; J7613; J7644

== ENCOUNTER 2016-05-22 10:00 | Inpatient (IN) | payer OTHER ==
[2016-05-22] VITALS (9 sets, daily range): BP systolic 96–110; BP diastolic 53–63; PULSE 80–113; RESP 16–22; TEMP 97.8–98.8; O2SAT 87–93
[~2016-05-22] VITALS: Ht 179.1 cm; Wt 115.1 kg
[~2016-05-22 10:00] MED LIST: ALLO300T2 PO; AZIT250T3 PO; DICL1GEL7 TOPICAL; DILT-64 PO; GEMF600T PO; LISI40TA PO; LORA10TA PO; METF500T PO; OMEP20TA PO; OXYC1CAP PO; RANI300T PO; SALS500T PO; VENTAER INH; WARF-21 PO; WARF-23 PO
--- NOTE | 2016-05-22 10:39 | PD ---
HPI Chief Complaint: Respiratory Distress Time Seen by Provider: 10:27 Travel History International Travel<30 days: No Contact w/Intl Traveler<30days: No Traveled to known affect area: No History of Present Illness HPI 61-year-old male complains of coughing and shortness of breath. Patient was admitted to [facility] 2 weeks ago for pneumonia. Patient was given Rocephin and Zithromax IV. Patient was discharged home with prescription for Zithromax. Patient states that he took antibiotics as directed. Patient states that he had persistent cough since then. Patient has increasing shortness of breath since then. Patient states that a copy persistent and dry cough. Patient denies any fever chills. Patient denies any chest pain. Patient was seen by [place] and referred to ED for evaluation. Patient has history of atrial fibrillation on Coumadin. Patient also has history hypertension, diabetes, dyslipidemia. Patient is a nonsmoker. PFSH Past Medical History Hx Anticoagulant Therapy: Yes (COUMADIN ) Arthritis: Yes Asthma: No Atrial Fibrillation: Yes Autoimmune Disease: Yes Anxiety: No Depression: No Heart Rhythm Problems: Yes (A FIB) Cancer: No Cardiovascular Problems: Yes High Cholesterol: Yes Chemotherapy: No Chest Pain: Yes Congestive Heart Failure: No COPD: No Cerebrovascular Accident: No Diabetes: Yes Patient Takes Glucophage: Yes Diminished Hearing: No Endocrine: Yes Gastrointestinal Disorders: Yes GERD: Yes Gout: Yes Genitourinary: No Hiatal Hernia: No Hypertension: Yes Immune Disorder: No Kidney Stones: No Musculoskeletal: Yes Neurologic: Yes Psychiatric: No Reproductive: No Respiratory: Yes Migraines: No Pneumonia: Yes Radiation Therapy: No Renal Failure: No Seizures: No Sickle Cell Disease: No Sleep Apnea: No Thyroid Disease: No Ulcer: No Tetanus Vaccination: Unknown Influenza Vaccination: No Past Surgical History Abdominal Surgery: No AICD: No Arteriovenous Shunt: No Cardiac Surgery: No Ear Surgery: No Endocrine Surgery: No Eye Surgery: No Genitourinary Surgery: No Gynecologic Surgery: No Insulin Pump: No Joint Replacement: No Pacemaker: No Thoracic Surgery: No Tonsillectomy: Yes Social History Alcohol Use: No Tobacco Use: No (QUIT 1996) Substance Use: No Allergies-Medications (Allergen,Severity, Reaction): Coded Allergies: No Known Allergies (Unverified , 05/08/16) Reported Meds & Prescriptions Reported Meds & Active Scripts Active Ventolin Hfa 18 GM Inh (Albuterol Sulfate) 90 Mcg/Act Aer 2 Puff INH Q4-6H PRN Reported Oxycodone (Oxycodone HCl) 5 Mg Cap 5 Mg PO Q8H Diltiazem CD 24 HR 240 Mg Caper 240 Mg PO HS Ranitidine (Ranitidine HCl) 300 Mg Tab 300 Mg PO HS Metformin (Metformin HCl) 500 Mg Tab 500 Mg PO BIDPC With meals Loratadine 10 Mg Tab 10 Mg PO DAILY Gemfibrozil 600 Mg Tab 600 Mg PO BIDAC Take 30 minutes prior to breakfast and dinner. Allopurinol 300 Mg Tab 300 Mg PO BID Diclofenac Topical 1% Gel 1 Applic TOPICAL QID Warfarin 7.5 Mg Tab 7.5 Mg PO MOWE @ HS Warfarin 5 Mg Tab 5 Mg PO SUTUTHFRSA @ HS Omeprazole 20 Mg Tab 20 Mg PO DAILY Lisinopril 40 Mg Tab 40 Mg PO DAILY Salsalate 500 Mg Tab 500 Mg PO BID Review of Systems General / Constitutional: No: Fever Eyes: No: Visual changes HENT: No: Headaches Cardiovascular: No: Chest Pain or Discomfort Respiratory: Positive: Cough, Shortness of Breath Gastrointestinal: No: Abdominal Pain Genitourinary: No: Dysuria Musculoskeletal: No: Pain Skin: No Rash Neurologic: No: Weakness Psychiatric: No: Depression Endocrine: No: Polydipsia Hematologic/Lymphatic: No: Easy Bruising Physical Exam Narrative GENERAL: Well-nourished, well-developed patient. SKIN: Warm and dry. HEAD: Normocephalic. EYES: No scleral icterus. No injection or drainage. NECK: Supple, trachea midline. No JVD or lymphadenopathy. CARDIOVASCULAR: Irregular irregular rate and rhythm without murmurs, gallops, or rubs. RESPIRATORY: Breath sounds equal bilaterally. No accessory muscle use. Patient has diffuse rhonchi at the bases. GASTROINTESTINAL: Abdomen soft, non-tender, nondistended. MUSCULOSKELETAL: No cyanosis, or edema. BACK: Nontender without obvious deformity. No CVA tenderness. Neurologic exam normal. Data Data Last Documented VS Vital Signs Date Time Temp Pulse Resp B/P Pulse Ox O2 Delivery O2 Flow Rate FiO2 05/22/16 10:36 22 87 Room Air 05/22/16 10:36 3 05/22/16 10:09 98.8 113 100/57 Orders Electrocardiogram (05/22/16 ) Complete Blood Count With Diff (05/22/16 10:32) Comprehensive Metabolic Panel (05/22/16 10:32) B-Type Natriuretic Peptide (05/22/16 10:32) Prothrombin Time / Inr (Pt) (05/22/16 10:32) Act Partial Throm Time (Ptt) (05/22/16 10:32) Blood Culture (05/22/16 10:32) Influenzae A/B Antigen (05/22/16 10:32) Chest, Single Ap (05/22/16 10:32) Iv Access Insert/Monitor (05/22/16 10:32) Ecg Monitoring (05/22/16 10:32) Oxygen Administration (05/22/16 10:32) Oximetry (05/22/16 10:32) Ct Pulmonary Angiogram (05/22/16 11:31) Cefepime Inj (Maxipime Inj) (05/22/16 11:45) Sodium Chlor 0.9% 1000 Ml Inj (Ns 1000 M (05/22/16 12:00) Iohexol 350 Inj (Omnipaque 350 Inj) (05/22/16 12:08) Albuterol-Ipratropium Neb (Duoneb Neb) (05/22/16 12:30) Labs Laboratory Tests Test 05/22/16 10:35 White Blood Count 22.4 TH/MM3 Red Blood Count 4.74 MIL/MM3 Hemoglobin 15.2 GM/DL Hematocrit 45.4 % Mean Corpuscular Volume 95.8 FL Mean Corpuscular Hemoglobin 32.1 PG Mean Corpuscular Hemoglobin 33.5 % Concent Red Cell Distribution Width 14.5 % Platelet Count 253 TH/MM3 Mean Platelet Volume 10.3 FL Neutrophils (%) (Auto) 92.6 % Lymphocytes (%) (Auto) 4.6 % Monocytes (%) (Auto) 2.3 % Eosinophils (%) (Auto) 0.2 % Basophils (%) (Auto) 0.3 % Neutrophils # (Auto) 20.7 TH/MM3 Lymphocytes # (Auto) 1.0 TH/MM3 Monocytes # (Auto) 0.5 TH/MM3 Eosinophils # (Auto) 0.0 TH/MM3 Basophils # (Auto) 0.1 TH/MM3 CBC Comment DIFF FINAL Differential Comment Prothrombin Time 38.8 SEC Prothromb Time International 3.3 RATIO Ratio Activated Partial 47.1 SEC Thromboplast Time Sodium Level 132 MEQ/L Potassium Level 4.5 MEQ/L Chloride Level 101 MEQ/L Carbon Dioxide Level 19.0 MEQ/L Anion Gap 12 MEQ/L Blood Urea Nitrogen 23 MG/DL Creatinine 1.35 MG/DL Estimat Glomerular Filtration 54 ML/MIN Rate Random Glucose 111 MG/DL Calcium Level 9.4 MG/DL Total Bilirubin 0.7 MG/DL Aspartate Amino Transf 21 U/L (AST/SGOT) Alanine Aminotransferase 18 U/L (ALT/SGPT) Alkaline Phosphatase 118 U/L B-Type Natriuretic Peptide 84 PG/ML Total Protein 7.7 GM/DL Albumin 3.0 GM/DL MDM Medical Decision Making Medical Screen Exam Complete: Yes Emergency Medical Condition: Yes Interpretation(s) 10:39 PM. EKG shows atrial fibrillation with rate 103. 11:29 AM. Last Impressions Chest X-Ray 05/22/16 1032 Signed Impressions: Service Date/Time: Sunday, May 22, 2016 10:31 - CONCLUSION: No acute disease. Luis M Joiner MD 11:29 AM. CBC WBC 22.4. 92 neutrophil. Sodium 132. BUN 23. Creatinine 1.35. INR 3.3. Influenza AB antigen negative. 11:[address] pulmonary angiogram shows no evidence of PE. COPD with central low back emphysema. Scattered bilateral interstitial infiltrates. Differential Diagnosis Differential diagnosis including bronchitis, pneumonia, PE, pneumothorax, CHF. Narrative Course 61-year-old male with persistent cough and shortness of breath. Recently was treated for pneumonia. Cefepime 1 g IV. Albuterol with Atrovent unit dose treatment times one. Diagnosis Primary Impression: CAP (community acquired pneumonia) Additional Impression: Hypoxemia Isidro Gonzalez MD May 22, 2016 10:39
--- NOTE | 2016-05-22 10:53 | RADRPT ---
EXAM DATE/TIME: 05/22/2016 10:31 [facility] COMPARISON: CHEST SINGLE AP, May 08, 2016, 11:55. INDICATIONS : Shortness of breath. MEDICAL HISTORY : Hx of pneumonia. SURGICAL HISTORY : None. ENCOUNTER: Initial ACUITY: 2 weeks PAIN SCORE: 0/10 LOCATION: Bilateral chest FINDINGS: A single view of the chest demonstrates the lungs to be symmetrically aerated without evidence of mas s, infiltrate or effusion. The cardiomediastinal contours are unremarkable. Osseous structures are intact. CONCLUSION: No acute disease. Luis M Joiner MD on May 22, 2016 at 10:52 Board Certified Radiologist. This report was verified electronically.
[2016-05-22] MEDS ORDERED: DILT-64 PO (11:00)
[2016-05-22] MEDS ORDERED: OXYC1CAP PO (11:00)
[2016-05-22 11:01] LABS: AUTOMATED NEUTROPHIL # 20.7 TH/MM3 (1.8-7.7); BASOPHIL # 0.1 TH/MM3 (0-0.2); BASOPHIL % 0.3 % (0.0-2.0); EOSINOPHIL % 0.2 % (0.0-4.0); HEMATOCRIT 45.4 % (39.0-51.0); HEMO FLAGS DIFF FINAL; LYMPH % 4.6 % (9.0-44.0); MEAN CELL VOLUME 95.8 FL (80.0-100.0); MEAN CORPUSCULAR HEMOGLOBIN 32.1 PG (27.0-34.0); MEAN CORPUSCULAR HGB CONC 33.5 % (32.0-36.0); MONO % 2.3 % (0.0-8.0); NEUT % 92.6 % (16.0-70.0); PLATELET COUNT 253 TH/MM3 (150-450); RED BLOOD COUNT 4.74 MIL/MM3 (4.50-5.90); RED CELL DISTRIBUTION WIDTH 14.5 % (11.6-17.2); WHITE BLOOD COUNT 22.4 TH/MM3 (4.0-11.0)
[2016-05-22 11:11] LABS: APTT (PATIENT) 47.1 SEC (24.3-30.1); INTERNATIONAL NORMALIZED RATIO 3.3 RATIO; PROTHROMBIN TIME - PATIENT 38.8 SEC (9.8-11.6)
[2016-05-22 11:21] LABS: ALT (GPT) 18 U/L (12-78); ANION GAP 12 MEQ/L (5-15); AST (GOT) 21 U/L (15-37); BLOOD UREA NITROGEN 23 MG/DL (7-18); CHLORIDE 101 MEQ/L (98-107); GLOMERULAR FILTRATION RATE 54 ML/MIN (>89); POTASSIUM 4.5 MEQ/L (3.5-5.1); SODIUM (NA) 132 MEQ/L (136-145)
[2016-05-22 11:23] LABS: ALKALINE PHOSPHATASE 118 U/L (45-117); TOTAL BILIRUBIN ADULT 0.7 MG/DL (0.2-1.0)
[2016-05-22] MEDS ORDERED: CEFEPIME INJ 1,000 MG in SODIUM CHLORIDE 0.9% INJ 100 ML IV ONE (11:45)
[2016-05-22] MEDS ORDERED: IOHEXOL 350 MG/ML 10 ML VIAL (for RAD DIAG) IV ONE (12:08)
--- NOTE | 2016-05-22 12:13 | RADRPT ---
EXAM DATE/TIME: 05/22/2016 11:50 [facility] COMPARISON: No previous studies available for comparison. INDICATIONS : Shortness of breath and cough. IV CONTRAST: 71 cc Omnipaque 350 (iohexol) IV RADIATION DOSE: 17.62 CTDIvol (mGy) MEDICAL HISTORY : Cardiovascular disease. Hypertension. Diabetes mellitus type 2. SURGICAL HISTORY : None. ENCOUNTER: Initial ACUITY: 1 day PAIN SCALE: 4/10 LOCATION: Bilateral chest TECHNIQUE: Volumetric scanning of the chest was performed using a pulmonary embolism protocol MIP images were re constructed. Using automated exposure control and adjustment of the mA and/or kV according to patien t size, radiation dose was kept as low as reasonably achievable to obtain optimal diagnostic quality images. FINDINGS: PULMONARY ARTERIES: No filling defects are seen in the pulmonary arteries through the segmental level. LUNGS: There is central emphysema. There is hyperaeration bilaterally. There is scattered interstitial infil trates bilaterally. PLEURAE: There is no pleural thickening or pleural effusion. MEDIASTINUM: There is good visualization of the great vessels of the middle mediastinum. No evidence of mediastin al or hilar adenopathy/mass. MUSCULOSKELETAL: Within normal limits for patient age. MISCELLANEOUS: The visualized upper abdominal organs demonstrate no acute abnormality. CONCLUSION: 1. No evidence of pulmonary embolism. 2. COPD with central lobar emphysema. 3. Scattered bilateral interstitial infiltrates which could be on a chronic or acute basis. Luis M Joiner MD on May 22, 2016 at 12:09 Board Certified Radiologist. This report was verified electronically.
[2016-05-22] MEDS ORDERED: RESP: ALBUTEROL 2.5 MG/IPRATROPIUM 0.5 MG NEB (SCH) INH ONE (12:30)
[2016-05-22] MEDS: SODIUM CHLOR 0.9% 1000 ML INJ 1,000 ML IV SCH (12:31)
--- NOTE | 2016-05-22 13:18 | HHI.HP ---
HPI Service [facility] Hospitalists Primary Care Physician [facility] Admission Diagnosis pneumonia. Hypoxemia. Diagnoses: Chief Complaint: shortness of breath Travel History International Travel<30 Days: No Contact w/Intl Traveler <30 Da: No Traveled to Known Affected Are: No Sepsis Criteria SIRS Criteria (2 or more): Heart rate over 90, RR > 20 or PaCO2 < 32, WBC > 58507, < 4000 or > 10% bands Sepsis Criteria (SIRS+source): Infect source susp/known Severe Sepsis (+one): Hypotension Criteria Outcome: Meets severe sepsis criteria History of Present Illness 61-year-old male with history of atrial fibrillation on Coumadin, diabetes, chronic low back pain, GERD, gout, hypertension and hyperlipidemia, presents with worsening shortness of breath and cough over the past 3 weeks. The patient was admitted to [facility] 05/08/16-05/09/16 for pneumonia, URI, given Rocephin/Azithro and discharged on Azithro course; also afib RVR and Cardizem increased to 240mg at that time. The patient reports since he was discharged, he has been experiencing worsening shortness of breath and lightheadedness. Also reports a persistent dry nonproductive cough. He reports chills, body sweats, but has not checked his temperature at home. He does have a nebulizer machine which he has been using with some relief. He does not wear oxygen at home. Denies any congestion, sore throat, body aches. Denies chest pains or palpitations. He was seen at the [place] and referred to the ER for further evaluation. Upon arrival to the ER, O2 sat 87% on room air, RR 24, HR 113, BP 100/57. CXR unremarkable. CT-PA negative for PE, does show COPD with central lobar emphysema; scattered bilateral interstitial infiltrates. The patient was given IV Cefepime, duoneb, and oxygen with some relief. O2 sat now 92% on 3L NC. Review of Systems Constitutional: COMPLAINS OF: Diaphoretic episodes, Chills, Night Sweats, DENIES: Fever, Change in appetite Endocrine: DENIES: Polydipsia, Polyuria, Polyphagia Eyes: DENIES: Blurred vision, Vision loss, Double Vision Ears, nose, mouth, throat: DENIES: Throat pain, Running Nose, Odynophagia Respiratory: COMPLAINS OF: Cough, Shortness of breath, DENIES: Sputum production Cardiovascular: COMPLAINS OF: Dyspnea on Exertion, DENIES: Chest pain, Palpitations, Syncope, Lower Extremity Edema Gastrointestinal: DENIES: Abdominal pain, Constipation, Diarrhea, Nausea, Vomiting Genitourinary: DENIES: Urinary frequency, Urgency, Dysuria Musculoskeletal: DENIES: Joint pain, Back pain, Neck pain Integumentary: DENIES: Pruritus, Rash Hematologic/lymphatic: DENIES: Bruising, Lymphadenopathy Immunologic/allergic: DENIES: Eczema, Urticaria Neurologic: DENIES: Abnormal gait, Headache, Localized weakness Psychiatric: DENIES: Anxiety, Depression Past Family Social History Past Medical History atrial fibrillation on Coumadin diabetes chronic low back pain GERD gout hypertension hyperlipidemia Past Surgical History tonsillectomy no other surgeries Reported Medications Ventolin Hfa 18 GM Inh (Albuterol Sulfate) 90 Mcg/Act Aer 2 Puff INH Q4-6H PRN Oxycodone (Oxycodone HCl) 5 Mg Cap 5 Mg PO Q8H Diltiazem CD 24 HR 240 Mg Caper 240 Mg PO HS Ranitidine (Ranitidine HCl) 300 Mg Tab 300 Mg PO HS Metformin (Metformin HCl) 500 Mg Tab 500 Mg PO BIDPC With meals Loratadine 10 Mg Tab 10 Mg PO DAILY Gemfibrozil 600 Mg Tab 600 Mg PO BIDAC Take 30 minutes prior to breakfast and dinner. Allopurinol 300 Mg Tab 300 Mg PO BID Diclofenac Topical 1% Gel 1 Applic TOPICAL QID Warfarin 7.5 Mg Tab 7.5 Mg PO MOWE @ HS Warfarin 5 Mg Tab 5 Mg PO SUTUTHFRSA @ HS Omeprazole 20 Mg Tab 20 Mg PO DAILY Lisinopril 40 Mg Tab 40 Mg PO DAILY Salsalate 500 Mg Tab 500 Mg PO BID Allergies: Coded Allergies: No Known Allergies (Unverified , 05/08/16) Active Ordered Medications Current Medications Medications (Trade) Dose Ordered Sig/Mile Route Start Time Stop Time Status Last Admin Sodium Chloride 1,000 ml @ 70 mls/hr [id number] IV 05/22/16 12:00 05/22/16 12:31 (Coumadin Consult Pharmacy) 0 ml @ 0 mls/hr UNSCH OTHER 05/22/16 13:30 (Cardizem Cd) 360 mg DAILY PO 05/23/16 09:00 Family History Mother with lung cancer in her mid 40s Father with no significant medical problems Social History Smoked tobacco from age 9 to age 46, 2 PPD Denies any alcohol use Denies illicit drug use Lives with his , cat, and a dog Physical Exam Vital Signs Vital Signs Date Time Temp Pulse Resp B/P Pulse Ox O2 Delivery O2 Flow Rate FiO2 05/22/16 12:31 92 Nasal Cannula 3.00 05/22/16 12:00 96 20 96/63 90 Nasal Cannula 3 05/22/16 10:36 22 87 Room Air 05/22/16 10:36 92 Nasal Cannula 3 05/22/16 10:13 24 91 Nasal Cannula 3 05/22/16 10:09 98.8 113 22 100/57 87 Physical Exam GENERAL: Well-nourished, well-developed middle aged male patient in [facility]. SKIN: Warm and dry. No rash. HEAD: Normocephalic. Atraumatic. EYES: Pupils equal and round. No scleral icterus. No injection or drainage. ENT: No nasal bleeding or discharge. Mucous membranes pink and moist. NECK: Supple. Trachea midline. CARDIOVASCULAR: Regular rate and rhythm. S1, S2 noted. No murmur appreciated. RESPIRATORY: No accessory muscle use. Diffuse expiratory wheezing. Breath sounds equal bilaterally. GASTROINTESTINAL: Abdomen soft, non-tender, nondistended. Normoactive bowel sounds x4. MUSCULOSKELETAL: No obvious deformities. Trace bilateral lower extremity edema. NEUROLOGICAL: Awake and alert. No obvious cranial nerve deficits. Motor grossly within normal limits. Normal speech. PSYCHIATRIC: Appropriate mood and affect; insight and judgment normal. Laboratory Laboratory Tests Test 05/22/16 10:35 White Blood Count 22.4 Red Blood Count 4.74 Hemoglobin 15.2 Hematocrit 45.4 Mean Corpuscular Volume 95.8 Mean Corpuscular Hemoglobin 32.1 Mean Corpuscular Hemoglobin 33.5 Concent Red Cell Distribution Width 14.5 Platelet Count 253 Mean Platelet Volume 10.3 Neutrophils (%) (Auto) 92.6 Lymphocytes (%) (Auto) 4.6 Monocytes (%) (Auto) 2.3 Eosinophils (%) (Auto) 0.2 Basophils (%) (Auto) 0.3 Neutrophils # (Auto) 20.7 Lymphocytes # (Auto) 1.0 Monocytes # (Auto) 0.5 Eosinophils # (Auto) 0.0 Basophils # (Auto) 0.1 CBC Comment DIFF FINAL Differential Comment Prothrombin Time 38.8 Prothromb Time International 3.3 Ratio Activated Partial 47.1 Thromboplast Time Sodium Level 132 Potassium Level 4.5 Chloride Level 101 Carbon Dioxide Level 19.0 Anion Gap 12 Blood Urea Nitrogen 23 Creatinine 1.35 Estimat Glomerular Filtration 54 Rate Random Glucose 111 Calcium Level 9.4 Total Bilirubin 0.7 Aspartate Amino Transf 21 (AST/SGOT) Alanine Aminotransferase 18 (ALT/SGPT) Alkaline Phosphatase 118 B-Type Natriuretic Peptide 84 Total Protein 7.7 Albumin 3.0 Date/Time Procedure Status Source Growth 05/22/16 10:40 Influenza Types A,B Antigen (HONG) - Final Complete Nasal Washing NEGATIVE FOR FLU A AND B ANTIGEN.... 05/22/16 10:40 Aerobic Blood Culture Received Blood Peripheral Pending 05/22/16 10:40 Anaerobic Blood Culture Received Blood Peripheral Pending Result Diagram: 05/22/16 1035 05/22/[address] Angiography 05/22/16 1131 Signed Impressions: Service Date/Time: Sunday, May 22, 2016 11:50 - CONCLUSION: 1. No evidence of pulmonary embolism. 2. COPD with central lobar emphysema. 3. Scattered bilateral interstitial infiltrates which could be on a chronic or acute basis. Luis M Joiner MD Chest X-Ray 05/22/16 1032 Signed Impressions: Service Date/Time: Sunday, May 22, 2016 10:31 - CONCLUSION: No acute disease. Luis M Joiner MD Assessment and Plan Assessment and Plan 61-year-old male with history of atrial fibrillation on Coumadin, diabetes, chronic low back pain, GERD, gout, hypertension and hyperlipidemia, presents with worsening shortness of breath and cough over the past 3 weeks. Acute Respiratory Failure with Hypoxia/Dyspnea: likely multifactorial with pneumonia, COPD exacerbation, see treatment below. Upon arrival, O2 sat 87% on room air, RR 24, HR 113. CXR unremarkable. CT-PA negative for PE, does show COPD with central lobar emphysema; scattered bilateral interstitial infiltrates. Check ABG. Severe Sepsis: patient meets severe sepsis criteria with leukocytosis WBC 22.4K , tachypneic RR 24, tachycardic HR 113, hypotensive with BP 96/63. Give IVF. Check lactic acid. Blood cultures collected. COPD Exacerbation: patient with diffuse wheezing on exam. Continue duonebs q6h mile and q2h prn. Start Symbicort bid. Consult pulmonology. Pneumonia: with b/l infiltrates on CT. S/p IV Cefepime in the ED. Will continue with IV cefepime and dozyclycine for atypical coverage. Pulmonology consulted. Atrial Fibrillation with RVR: HR in the 110s in the ED. Give extra dose of po Cardizem x1 now and increase Cardizem to 360mg daily. Monitor on telemetry. INR 3.3, consult pharmacy for Coumadin dosing/monitoring. JORGE LUIS: Cr 1.35, previously 1.26 on 05/08/16. Give IVF. Hold ACEi. Repeat BMP in the morning. Hypertension: chronic, holding patient's lisinopril with JORGE LUIS as above, also patient still hypotensive. Monitor BP, add antihypertensives as needed. Diabetes Mellitus: chronic, hold patient's metformin for now. Monitor Accu- cheks and cover with SSI. Diabetic diet. Chronic Back Pain: continue patient's Oxycodone prn. GERD: chronic, continue patient's Zantac. Gout: chronic, continue patient's allopurinol. DVT Prophylaxis: on Coumadin Written by Nadege Roman, acting as scribe for Dr. Funk on 05/22/16 at 17: 19. The documentation accurately reflects the work performed [id number] by id on at 17:19 Code Status DNR Discussed Condition With Patient, ER Physician Certification 2 Midnight Certification Type: Admission for Inpatient Services Order for Inpatient Services The services are ordered in accordance with Medicare regulations or non- Medicare payer requirements, as applicable. In the case of services not specified as inpatient-only, they are appropriately provided as inpatient services in accordance with the 2-midnight benchmark. Estimated LOS (days): 3 days is the estimated time the patient will need to remain in the hospital, assuming treatment plan goals are met and no additional complications. Post-Hospital Plan: Home Nadege Roman PA-C May 22, 2016 13:18 Jelani Funk MD May 22, 2016 19:19
[2016-05-22 13:27] LABS: BLOOD GAS BASE EXCESS -7.6 mmol/L (-2-2); BLOOD GAS HCO3 16 mmol/L (22-26); BLOOD GAS METHEMOGLOBIN 1.7 % (0-2); BLOOD GAS O2 HGB SATURATION 90 % (90-100); BLOOD GAS OXYGEN CONTENT 20.1 Vol % (12.0-20.0); BLOOD GAS PCO2 24 mmHg (38-42); BLOOD GAS PO2 63 mmHG (61-120); TEMP CORR TO 98.6
[2016-05-22 13:28] LABS: CRITICAL VALUE YES; DRAW SITE RT RADIAL; LITER FLOW 3 L/M; NUMBER OF ARTERIAL PUNCTURES 1; OXYGEN DEVICE NASAL CANNULA; STAT YES; ULNAR PULSE PRESENT
[2016-05-22] MEDS ORDERED: DILTIAZEM-CD 120 MG CAP ER PO ONE (14:00)
[2016-05-22] MEDS ORDERED: ONDANSETRON HCL 4 MG/2 ML VIAL IVP PRN (16:45)
[2016-05-22] MEDS ORDERED: ACETAMINOPHEN 325 MG TAB PO PRN (16:45)
[2016-05-22] MEDS ORDERED: NALOXONE HCL 0.4 MG/ML AMP IV PRN (16:45)
[2016-05-22] MEDS ORDERED: SODIUM CHLORIDE 0.9% FLUSH 5 ML FLUSH FLUSH PRN (16:45)
[2016-05-22] MEDS ORDERED: MORPHINE SULFATE 4 MG/ML INJ IV PRN (16:45)
[2016-05-22] MEDS ORDERED: RESP: ALBUTEROL 2.5 MG/IPRATROPIUM 0.5 MG NEB (PRN) NEB (16:45)
[2016-05-22] MEDS ORDERED: DEXTROSE 50% IN WATER 50 ML VIAL(D50) IV PUSH PRN (16:45)
[2016-05-22] MEDS ORDERED: DOCUSATE SODIUM 100 MG CAP PO PRN (16:45)
[2016-05-22] MEDS ORDERED: MAGNESIUM HYDROXIDE SUSP 30 ML CUP PO PRN (16:45)
[2016-05-22] MEDS ORDERED: GLUCAGON 1 MG/ML VIAL OTHER PRN (16:45)
--- NOTE | 2016-05-22 17:32 | EKG ---
Date Performed: 05/22/2016 Time Performed: 10:10:23 PTAGE: 61 years EKG: ATRIAL FIBRILLATION WITH RAPID VENTRICULAR RESPONSE BORDERLINE LEFT AXIS DEVIATION LOW QRS VOLTAGE IN EXTREMITY LEADS PATTERN CONSISTENT WITH PULMONARY DISEASE Since previous tracing, no signi ficant change noted ABNORMAL ECG PREVIOUS TRACING : 05/08/2016 11.34 DOCTOR: Anjana Brown Interpretating Date/Time 05/22/2016 17:29:08
[2016-05-22] MEDS ORDERED: ENOXAPARIN SODIUM 40 MG/0.4 ML SYRINGE SQ SCH (18:00)
[2016-05-22] MEDS: RESP: ALBUTEROL 2.5 MG/IPRATROPIUM 0.5 MG NEB (SCH) NEB (20:17)
[2016-05-22] MEDS ORDERED: BUDESONIDE-FORMOTEROL 80/4.5 MCG INHALER INH SCH (21:00)
[2016-05-22] MEDS ORDERED: SALSALATE 500 MG PO SCH (21:00)
[2016-05-22] MEDS: CEFEPIME INJ 2,000 MG in SODIUM CHLORIDE 0.9% INJ 100 ML IV SCH (21:48)
[2016-05-22] MEDS: SODIUM CHLORIDE 0.9% FLUSH 5 ML FLUSH FLUSH SCH (21:49)
[2016-05-22] MEDS: INSULIN ASPART SUPPLEMENTAL SCALE SQ SCH (21:49)
[2016-05-22] MEDS: FAMOTIDINE 20 MG TAB PO SCH (21:50)
[2016-05-22] MEDS: DOXYCYCLINE HYCLATE 100 MG CAP PO SCH (21:50)
[2016-05-22] MEDS: ALLOPURINOL 300 MG TAB PO SCH (21:50)
[2016-05-22] MEDS: BUDESONIDE-FORMOTEROL 80/4.5 MCG INHALER INH SCH (22:45)
[2016-05-22] MEDS: BENZONATATE 100 MG CAP PO PRN (22:47)
[2016-05-23] VITALS (9 sets, daily range): BP systolic 100–124; BP diastolic 58–71; PULSE 82–102; RESP 16–24; TEMP 97.4–99.8; O2SAT 90–98
[2016-05-23] MEDS: SODIUM CHLOR 0.9% 1000 ML INJ 1,000 ML IV SCH ×2 (02:18→16:09)
[2016-05-23] MEDS: CEFEPIME INJ 2,000 MG in SODIUM CHLORIDE 0.9% INJ 100 ML IV SCH ×3 (04:30→21:09)
[2016-05-23 06:06] LABS: BICARBONATE 20.1 MEQ/L (21.0-32.0); POTASSIUM 4.2 MEQ/L (3.5-5.1)
[2016-05-23] MEDS: INSULIN ASPART SUPPLEMENTAL SCALE SQ SCH ×4 (06:09→21:00)
[2016-05-23 06:10] LABS: AUTOMATED NEUTROPHIL # 10.5 TH/MM3 (1.8-7.7); BASOPHIL % 0.3 % (0.0-2.0); EOSINOPHIL # 0.1 TH/MM3 (0-0.4); EOSINOPHIL % 0.6 % (0.0-4.0); HEMATOCRIT 40.8 % (39.0-51.0); HEMO FLAGS DIFF FINAL; LYMPH % 10.2 % (9.0-44.0); LYMPHOCYTE # 1.3 TH/MM3 (1.0-4.8); MEAN CELL VOLUME 95.3 FL (80.0-100.0); MEAN CORPUSCULAR HEMOGLOBIN 32.6 PG (27.0-34.0); MEAN CORPUSCULAR HGB CONC 34.2 % (32.0-36.0); MONO % 4.5 % (0.0-8.0); NEUT % 84.4 % (16.0-70.0); PLATELET COUNT 230 TH/MM3 (150-450); RED BLOOD COUNT 4.29 MIL/MM3 (4.50-5.90); RED CELL DISTRIBUTION WIDTH 14.7 % (11.6-17.2); WHITE BLOOD COUNT 12.5 TH/MM3 (4.0-11.0)
[2016-05-23] MEDS: GEMFIBROZIL 600 MG TAB PO SCH ×2 (06:11→16:09)
[2016-05-23 07:24] LABS: INTERNATIONAL NORMALIZED RATIO 2.6 RATIO; PROTHROMBIN TIME - PATIENT 29.4 SEC (9.8-11.6)
[2016-05-23] MEDS ORDERED: DILTIAZEM-CD 300 MG CAP ER PO SCH (09:00)
[2016-05-23] MEDS: RESP: ALBUTEROL 2.5 MG/IPRATROPIUM 0.5 MG NEB (SCH) NEB ×3 (09:04→19:41)
[2016-05-23] MEDS: BUDESONIDE-FORMOTEROL 80/4.5 MCG INHALER INH SCH ×2 (09:11→21:07)
[2016-05-23] MEDS: DOXYCYCLINE HYCLATE 100 MG CAP PO SCH ×2 (09:12→21:00)
[2016-05-23] MEDS: LORATADINE 10 MG TAB PO SCH (09:12)
[2016-05-23] MEDS: DILTIAZEM-CD 180 MG CAP ER PO SCH (09:12)
[2016-05-23] MEDS: ALLOPURINOL 300 MG TAB PO SCH ×2 (09:12→21:08)
[2016-05-23] MEDS: SODIUM CHLORIDE 0.9% FLUSH 5 ML FLUSH FLUSH SCH ×2 (09:12→21:00)
[2016-05-23] MEDS: PANTOPRAZOLE SOD 20 MG DELAYED RELEASE TAB PO SCH (09:12)
[2016-05-23] MEDS: FAMOTIDINE 20 MG TAB PO SCH ×2 (09:13→21:08)
[2016-05-23] MEDS: BENZONATATE 100 MG CAP PO PRN ×2 (09:17→18:09)
--- NOTE | 2016-05-23 15:49 | EC ---
Study Study Date:05/23/2016 STUDY CONCLUSIONS SUMMARY - Procedure narrative: Transthoracic echocardiography. Image quality was fair. Scanning was performed from the parasternal, apical, and subcostal acoustic windows. - Left ventricle: The cavity size was normal. Wall thickness was normal. Systolic function was normal. The estimated ejection fraction was in the range of 60% to 65%. Although no diagnostic regional wall motion abnormality was identified, this possibility cannot be completely excluded on the basis of this study. - Aortic valve: Trileaflet; mild sclerosis of noncoronary cusp. - Mitral valve: Trace regurgitation. - Right ventricle: The cavity size was at the upper limits of normal. Wall thickness was normal. - Tricuspid valve: Trace regurgitation. If LV function is below 40, please consider prescribing an ACEI or ARB or document rationale for non-use. PROCEDURE DATA STUDY STATUS: Elective. Procedure: Transthoracic echocardiography. Image quality was fair. Scanning was performed from the parasternal, apical, and subcostal acoustic windows. Study completion: The patient tolerated the procedure well. Transthoracic echocardiography. M-mode, complete 2D, complete spectral Doppler, and color Doppler. Height: Height: 70in. Weight: Weight: 254.5lb. Body mass index: BMI: 36.6kg/m^2. Body surface area: BSA: 2.31m^2. Patient status: Inpatient. CARDIAC ANATOMY LEFT VENTRICLE: The cavity size was normal. Wall thickness was normal. Systolic function was normal. The estimated ejection fraction was in the range of 60% to 65%. Although no diagnostic regional wall motion abnormality was identified, this possibility cannot be completely excluded on the basis of this study. AORTIC VALVE: Trileaflet; mild sclerosis of noncoronary cusp. Doppler: Transvalvular velocity was within the normal range. There was no stenosis. No regurgitation. Valve area: 1.85cm^2(VTI). Indexed valve area: 0.8cm^2/m^2 (VTI). Valve area: 1.64cm^2 (Vmax). Indexed valve area: 0.71cm^2/m^2 (Vmax). Mean gradient: 7mm Hg (S). Peak gradient: 12mm Hg (S). AORTA: Aortic root: The aortic root was normal in size. MITRAL VALVE: Structurally normal valve. Doppler: Transvalvular velocity was within the normal range. There was no evidence for stenosis. Trace regurgitation. Peak gradient: 3mm Hg (D). LEFT ATRIUM: The atrium was normal in size. RIGHT VENTRICLE: The cavity size was at the upper limits of normal. Wall thickness was normal. Systolic function was normal. PULMONIC VALVE: Doppler: Transvalvular velocity was within the normal range. There was no evidence for stenosis. No regurgitation. TRICUSPID VALVE: Structurally normal valve. Doppler: Transvalvular velocity was within the normal range. Trace regurgitation. PULMONARY ARTERY: The main pulmonary artery was normal-sized. Systolic pressure was within the normal range. RIGHT ATRIUM: The atrium was normal in size. PERICARDIUM: There was no pericardial effusion. SYSTEMIC VEINS: Inferior vena cava: The vessel was normal in size. Patient weight: 254.5lb _Ejection fraction:_ 65-75% _Fractional shortening:_ 32% up to 5Kg 5-11.5Kg 11.6-22.9Kg 23-45Kg 45-57Kg Aortic Root 7-13 <17 13-22 17-27 17-27 LA diam 6-13 <23 24-38 33-47 37-40 RVID 10-17 7-15 7-15 7-18 8-17 LVIDd 12-22 <32 24-38 33-47 37-40 LVPW 2-4 3-6 5-7 6-8 7-8 IVS 2-4 3-6 5-7 6-8 7-8 BASIC MEASUREMENTS ADULT NORMAL Left ventricle LV internal dimension, ED, chordal *39.5 mm 43-52 level, PLAX LV internal dimension, ES, chordal 24.6 mm 23-38 level, PLAX Fractional shortening, chordal level, 38 % >29 PLAX LV posterior wall thickness, ED 9.84 mm IVS/LVPW ratio, ED 0.99 <1.3 Ventricular septum Septal thickness, ED 9.7 mm Aortic valve Leaflet separation 26 mm 15-26 Aorta Root diameter, ED 36 mm Left atrium Anterior-posterior dimension 33 mm Anterior-posterior dimension index 1.43 cm/m^2 <2.2 BASIC MEASUREMENTS ADULT NORMAL Aortic valve Leaflet separation 26 mm 15-26 DOPPLER MEASUREMENTS ADULT NORMAL Aortic valve Peak velocity, S 171 cm/s Mean velocity, S 118 cm/s VTI, S 27.1 cm Mean gradient, S 7 mm Hg Peak gradient, S 12 mm Hg Valve area, VTI 1.85 cm^2 Valve area index, VTI 0.8 cm^2/m^2 Valve area, Vmax 1.64 cm^2 Valve area index, Vmax 0.71 cm^2/m^2 Mitral valve Peak E-wave velocity 93 cm/s Peak gradient, D 3 mm Hg Pulmonic valve Peak velocity, S 76.7 cm/s LEGEND: Mean values are shown as u=mean value. Asterisk (*) kulkarni values outside specified normal range. Prepared and signed by Rajesh Bernal [id number]
[2016-05-23] MEDS: WARFARIN SOD 5 MG TAB PO SCH (16:09)
--- NOTE | 2016-05-23 17:23 | HHI.PR ---
Subjective Remarks pt says he is feeling a little more short of breath than when i saw him yesterday, but better than when he came in. no cp. no n/v. nonproductive cough Objective Vital Signs Date Time Temp Pulse Resp B/P Pulse Ox O2 Delivery O2 Flow Rate FiO2 05/23/16 16:00 98.4 88 20 120/62 91 05/23/16 12:27 Nasal Cannula 2.00 05/23/16 12:00 98.4 88 16 123/62 90 05/23/16 09:04 98 Nasal Cannula 2.00 05/23/16 07:52 97.7 89 20 105/60 93 05/23/16 04:00 98.8 88 21 100/58 90 05/23/16 00:00 99.8 102 20 109/58 93 05/22/16 20:32 92 Nasal Cannula 4.00 05/22/16 20:30 Nasal Cannula 3.00 05/22/16 20:14 83 05/22/16 20:00 97.8 83 19 104/53 93 05/22/16 19:28 Nasal Cannula 3.00 05/22/16 18:26 16 05/22/16 17:53 80 16 110/59 92 Nasal Cannula 3 I/O 05/22/16 05/22/16 05/22/16 05/23/16 05/23/16 05/23/16 07:00 15:00 23:00 07:00 15:00 23:00 Intake Total 240 ml 240 ml 480 ml Output Total 300 ml Balance 240 ml -60 ml 480 ml Intake Oral 240 ml 240 ml 480 ml Output Urine Total 300 ml # Voids 1 5 # Bowel Movements 0 Result Diagram: 05/23/16 0503 05/23/16 0503 Objective Remarks GENERAL: walking in room, sitting on bed. aaox3 SKIN: Warm and dry. HEAD: Normocephalic. EYES: No scleral icterus. No injection or drainage. NECK: Supple, trachea midline. No JVD. CARDIOVASCULAR: Regular rate and rhythm without murmurs, gallops, or rubs. RESPIRATORY: Breath sounds equal bilaterally. No accessory muscle use. moderate sob. speaking half sentences. dry crackles in bases BL GASTROINTESTINAL: Abdomen soft, non-tender, nondistended. MUSCULOSKELETAL: No cyanosis, or edema. BACK: Nontender without obvious deformity. No CVA tenderness. A/P Assessment and Plan 61-year-old male with history of atrial fibrillation on Coumadin, diabetes, chronic low back pain, GERD, gout, hypertension and hyperlipidemia, presents with worsening shortness of breath and cough over the past 3 weeks. Acute Respiratory Failure with Hypoxia/Dyspnea: likely multifactorial with pneumonia, COPD exacerbation, see treatment below. Upon arrival, O2 sat 87% on room air, RR 24, HR 113. CXR unremarkable. CT-PA negative for PE, does show COPD with central lobar emphysema; scattered bilateral interstitial infiltrates. Check ABG. Severe Sepsis: patient meets severe sepsis criteria with leukocytosis WBC 22.4K , tachypneic RR 24, tachycardic HR 113, hypotensive with BP 96/63. Give IVF. lactate WNL. Blood cultures NGTD. 05/23. improved. leukocytosis, hr improved. f/u cultures. cont abx for PNA COPD Exacerbation: patient with diffuse wheezing on exam. Continue duonebs q6h kacey and q2h prn. Start Symbicort bid. Consult pulmonology. -iv solumedrol added Pneumonia: with b/l infiltrates on CT. S/p IV Cefepime in the ED. -Will continue with IV cefepime and doxyclycine for atypical coverage. - legionella uag pending. -cont alexander rodriguez. -appreciate pulm assist Atrial Fibrillation with RVR: HR in the 110s in the ED. admit: HR 120s increase Cardizem to 360mg daily. -Monitor on telemetry. INR 3.3 on admit. pharm c/s for Coumadin dosing/monitoring. inr therapeutic JORGE LUIS: Cr 1.35, previously 1.26 on 05/08/16. Give IVF. Hold ACEi. Repeat BMP in the morning. -stable CR . cont ivf monitor Hypertension: chronic, holding patient's lisinopril with JORGE LUIS as above, also patient still hypotensive. Monitor BP, add antihypertensives as needed. Diabetes Mellitus: chronic, hold patient's metformin for now. Monitor Accu- cheks and cover with SSI. Diabetic diet. Chronic Back Pain: continue patient's Oxycodone prn. GERD: chronic, continue patient's Zantac. Gout: chronic, continue patient's allopurinol. DVT Prophylaxis: on Coumadin Discharge Planning pt lives at home with . anticipate dc within several days if improvement. Jelani Funk MD May 23, 2016 17:23
[2016-05-23] MEDS: methylPREDNISolone SOD SUCC 40 MG/1 ML VIAL IV PUSH SCH (18:02)
[2016-05-23] MEDS: FLUTICASONE PROPIONATE 50 MCG/ACT 16 GM NASAL SPRAY EACH NARE SCH (21:06)
[2016-05-24] VITALS (9 sets, daily range): BP systolic 97–170; BP diastolic 55–77; PULSE 60–99; RESP 18–24; TEMP 97.3–98.4; O2SAT 91–96
[2016-05-24] MEDS: methylPREDNISolone SOD SUCC 40 MG/1 ML VIAL IV PUSH SCH ×3 (01:17→17:27)
[2016-05-24] MEDS: CEFEPIME INJ 2,000 MG in SODIUM CHLORIDE 0.9% INJ 100 ML IV SCH ×3 (04:06→21:49)
[2016-05-24] MEDS: SODIUM CHLOR 0.9% 1000 ML INJ 1,000 ML IV SCH (04:07)
[2016-05-24] MEDS: INSULIN ASPART SUPPLEMENTAL SCALE SQ SCH ×4 (05:59→21:00)
[2016-05-24] MEDS: GEMFIBROZIL 600 MG TAB PO SCH ×2 (05:59→16:35)
[2016-05-24] MEDS: RESP: ALBUTEROL 2.5 MG/IPRATROPIUM 0.5 MG NEB (SCH) NEB ×3 (08:22→19:39)
[2016-05-24] MEDS: BENZONATATE 100 MG CAP PO PRN ×2 (08:24→17:26)
[2016-05-24] MEDS: LORATADINE 10 MG TAB PO SCH (08:24)
[2016-05-24] MEDS: FLUTICASONE PROPIONATE 50 MCG/ACT 16 GM NASAL SPRAY EACH NARE SCH ×2 (08:25→21:58)
[2016-05-24] MEDS: BUDESONIDE-FORMOTEROL 80/4.5 MCG INHALER INH SCH ×2 (08:25→21:58)
[2016-05-24] MEDS: SODIUM CHLORIDE 0.9% FLUSH 5 ML FLUSH FLUSH SCH ×2 (08:25→21:58)
[2016-05-24] MEDS: ALLOPURINOL 300 MG TAB PO SCH ×2 (08:26→21:51)
[2016-05-24] MEDS: DILTIAZEM-CD 180 MG CAP ER PO SCH (08:26)
[2016-05-24] MEDS: FAMOTIDINE 20 MG TAB PO SCH ×2 (08:26→21:51)
[2016-05-24] MEDS: DOXYCYCLINE HYCLATE 100 MG CAP PO SCH ×2 (08:26→21:51)
[2016-05-24] MEDS: PANTOPRAZOLE SOD 20 MG DELAYED RELEASE TAB PO SCH (08:26)
[2016-05-24 10:51] LABS: INTERNATIONAL NORMALIZED RATIO 2.2 RATIO; PROTHROMBIN TIME - PATIENT 24.8 SEC (9.8-11.6)
[2016-05-24 10:55] LABS: BICARBONATE 16.9 MEQ/L (21.0-32.0); MAGNESIUM 1.9 MG/DL (1.5-2.5); POTASSIUM 3.7 MEQ/L (3.5-5.1)
[2016-05-24 10:59] LABS: AUTOMATED NEUTROPHIL # 6.8 TH/MM3 (1.8-7.7); BASOPHIL % 0.1 % (0.0-2.0); EOSINOPHIL % 0.1 % (0.0-4.0); HEMATOCRIT 41.8 % (39.0-51.0); HEMO FLAGS DIFF FINAL; LYMPH % 7.4 % (9.0-44.0); LYMPHOCYTE # 0.6 TH/MM3 (1.0-4.8); MEAN CELL VOLUME 97.4 FL (80.0-100.0); MEAN CORPUSCULAR HEMOGLOBIN 32.4 PG (27.0-34.0); MEAN CORPUSCULAR HGB CONC 33.3 % (32.0-36.0); NEUT % 90.4 % (16.0-70.0); PLATELET COUNT 211 TH/MM3 (150-450); RED BLOOD COUNT 4.29 MIL/MM3 (4.50-5.90); RED CELL DISTRIBUTION WIDTH 14.5 % (11.6-17.2); WHITE BLOOD COUNT 7.6 TH/MM3 (4.0-11.0)
[2016-05-24] MEDS: WARFARIN SOD 5 MG TAB PO SCH (16:34)
--- NOTE | 2016-05-24 22:21 | HHI.PR ---
Subjective Remarks Patient seen today around 3 PM. Says he is feeling better than yesterday. Speaking more easily due to improve shortness of breath. Denies any chest pain. at bedside. Patient says he feels like he might want to go home tomorrow. Objective Vital Signs Date Time Temp Pulse Resp B/P Pulse Ox O2 Delivery O2 Flow Rate FiO2 05/24/16 20:00 97.6 94 18 132/66 94 05/24/16 19:40 95 Nasal Cannula 5.00 05/24/16 16:00 97.9 75 24 109/56 92 05/24/16 13:16 85 05/24/16 12:00 98.1 97 18 111/57 95 05/24/16 08:22 91 Nasal Cannula 4.50 05/24/16 08:20 Nasal Cannula 4.00 Humidified 05/24/16 08:00 98.2 85 18 113/55 93 05/24/16 04:00 97.3 85 20 97/60 94 05/24/16 00:00 98.1 99 20 115/56 91 I/O 05/23/16 05/23/16 05/23/16 05/24/16 05/24/16 05/24/16 07:00 15:00 23:00 07:00 15:00 23:00 Intake Total 240 ml 480 ml 360 ml 3007 ml 1345 ml Output Total 300 ml 500 ml Balance -60 ml 480 ml 360 ml 3007 ml 845 ml Intake Oral 240 ml 480 ml 360 ml 990 ml 720 ml IV Total 2017 ml 625 ml Output Urine Total 300 ml 500 ml # Voids 5 2 3 # Bowel Movements 0 0 Result Diagram: 05/24/1638 05/24/16937 Objective Remarks GENERAL: Sitting up in bed. Appears to be breathing more comfortably than yesterday.. aaox3 SKIN: Warm and dry. HEAD: Normocephalic. EYES: No scleral icterus. No injection or drainage. NECK: Supple, trachea midline. No JVD. CARDIOVASCULAR: Regular rate and rhythm without murmurs, gallops, or rubs. RESPIRATORY: Breath sounds equal bilaterally. No accessory muscle use. Mild shortness of breath.. speaking full sentences. Still with dry crackles in bases BL GASTROINTESTINAL: Abdomen soft, non-tender, nondistended. MUSCULOSKELETAL: No cyanosis, or edema. BACK: Nontender without obvious deformity. No CVA tenderness. A/P Assessment and Plan 61-year-old male with history of atrial fibrillation on Coumadin, diabetes, chronic low back pain, GERD, gout, hypertension and hyperlipidemia, presents with worsening shortness of breath and cough over the past 3 weeks. Acute Respiratory Failure with Hypoxia/Dyspnea: likely multifactorial with pneumonia, COPD exacerbation, see treatment below. Upon arrival, O2 sat 87% on room air, RR 24, HR 113. CXR unremarkable. CT-PA negative for PE, does show COPD with central lobar emphysema; scattered bilateral interstitial infiltrates. Check ABG. Severe Sepsis: patient meets severe sepsis criteria with leukocytosis WBC 22.4K , tachypneic RR 24, tachycardic HR 113, hypotensive with BP 96/63. Give IVF. lactate WNL. Blood cultures NGTD. 05/23. improved. leukocytosis, hr improved. f/u cultures. cont abx for PNA 05/24. Cultures negative to date. Improving. Leukocytosis resolved. Continue antibiotics for pneumonia. COPD Exacerbation: patient with diffuse wheezing on exam. Continue duonebs q6h kacey and q2h prn. Start Symbicort bid. Consult pulmonology. -05/23 iv solumedrol added 05/24. Much improvement. Switched to prednisone on 05/25. Legionella antigen not drawn. Nursing order. Pneumonia: with b/l infiltrates on CT. S/p IV Cefepime in the ED. -Will continue with IV cefepime and doxyclycine for atypical coverage. - legionella uag pending. -cont alexander rodriguez. -appreciate pulm assist. -05/24 Improving. Continue antibiotics. Atrial Fibrillation with RVR: HR in the 110s in the ED. admit: HR 120s increase Cardizem to 360mg daily. -Monitor on telemetry. INR 3.3 on admit. pharm c/s for Coumadin dosing/monitoring. inr therapeutic JORGE LUIS: Cr 1.35, previously 1.26 on 05/08/16. Give IVF. Hold ACEi. -05/24 Improving creatinine. Discontinue IV fluids. Hypertension: chronic, holding patient's lisinopril with JORGE LUIS as above, also patient still hypotensive. Monitor BP, add antihypertensives as needed. = Blood pressure acceptable. Continue to monitor. Diabetes Mellitus: chronic, hold patient's metformin for now. Monitor Accu- cheks and cover with SSI. Diabetic diet. =Blood sugars overall acceptable. Difficult control on steroids. Continue to monitor. Chronic Back Pain: continue patient's Oxycodone prn. GERD: chronic, continue patient's Zantac. Gout: chronic, continue patient's allopurinol. DVT Prophylaxis: on Coumadin Discharge Planning pt lives at home with . anticipate dc home in 2 days. May need oxygen at home. Jelani Funk MD May 24, 2016 22:21
[2016-05-25] VITALS (10 sets, daily range): BP systolic 107–127; BP diastolic 56–75; PULSE 72–90; RESP 18–21; TEMP 97.5–98.1; O2SAT 92–95
[2016-05-25] MEDS: CEFEPIME INJ 2,000 MG in SODIUM CHLORIDE 0.9% INJ 100 ML IV SCH ×3 (04:12→22:04)
[2016-05-25] MEDS: GEMFIBROZIL 600 MG TAB PO SCH ×2 (05:48→16:27)
[2016-05-25] MEDS: INSULIN ASPART SUPPLEMENTAL SCALE SQ SCH ×4 (05:53→21:00)
[2016-05-25 07:39] LABS: AUTOMATED NEUTROPHIL # 11.1 TH/MM3 (1.8-7.7); BASOPHIL % 0.1 % (0.0-2.0); HEMATOCRIT 37.4 % (39.0-51.0); HEMO FLAGS DIFF FINAL; LYMPH % 4.7 % (9.0-44.0); LYMPHOCYTE # 0.6 TH/MM3 (1.0-4.8); MEAN CELL VOLUME 96.1 FL (80.0-100.0); MEAN CORPUSCULAR HEMOGLOBIN 32.1 PG (27.0-34.0); MEAN CORPUSCULAR HGB CONC 33.3 % (32.0-36.0); MONO % 4.6 % (0.0-8.0); NEUT % 90.6 % (16.0-70.0); PLATELET COUNT 231 TH/MM3 (150-450); RED BLOOD COUNT 3.89 MIL/MM3 (4.50-5.90); RED CELL DISTRIBUTION WIDTH 14.1 % (11.6-17.2); WHITE BLOOD COUNT 12.2 TH/MM3 (4.0-11.0)
[2016-05-25 07:43] LABS: PROTHROMBIN TIME - PATIENT 23.2 SEC (9.8-11.6)
[2016-05-25] MEDS: RESP: ALBUTEROL 2.5 MG/IPRATROPIUM 0.5 MG NEB (SCH) NEB ×3 (08:03→19:40)
[2016-05-25 08:07] LABS: BICARBONATE 17.7 MEQ/L (21.0-32.0); MAGNESIUM 1.9 MG/DL (1.5-2.5); POTASSIUM 4.6 MEQ/L (3.5-5.1)
[2016-05-25] MEDS: BUDESONIDE-FORMOTEROL 80/4.5 MCG INHALER INH SCH ×2 (08:46→21:00)
[2016-05-25] MEDS: FLUTICASONE PROPIONATE 50 MCG/ACT 16 GM NASAL SPRAY EACH NARE SCH ×2 (08:46→21:00)
[2016-05-25] MEDS: FAMOTIDINE 20 MG TAB PO SCH ×2 (08:47→22:03)
[2016-05-25] MEDS: predniSONE 50 MG TAB PO SCH (08:47)
[2016-05-25] MEDS: ALLOPURINOL 300 MG TAB PO SCH ×2 (08:47→22:05)
[2016-05-25] MEDS: DILTIAZEM-CD 180 MG CAP ER PO SCH (08:47)
[2016-05-25] MEDS: PANTOPRAZOLE SOD 20 MG DELAYED RELEASE TAB PO SCH (08:47)
[2016-05-25] MEDS: SODIUM CHLORIDE 0.9% FLUSH 5 ML FLUSH FLUSH SCH ×2 (08:48→21:00)
[2016-05-25] MEDS: DOXYCYCLINE HYCLATE 100 MG CAP PO SCH ×2 (08:48→22:05)
[2016-05-25] MEDS: LORATADINE 10 MG TAB PO SCH (08:48)
[2016-05-25] MEDS: BENZONATATE 100 MG CAP PO PRN ×2 (11:22→22:03)
[2016-05-25] MEDS ORDERED: WARFARIN SOD 7.5 MG TAB PO SCH (16:00)
--- NOTE | 2016-05-25 18:53 | HHI.PR ---
Subjective Remarks 61 YOWM with COPD,HTN,DM,AF On NC Has cough, mostly dry No fever No CP Objective Vital Signs Vital Signs Date Time Temp Pulse Resp B/P Pulse Ox O2 Delivery O2 Flow Rate FiO2 05/25/16 16:05 97.9 83 19 114/65 92 05/25/16 12:33 97.9 85 20 123/57 93 05/25/16 10:14 5.00 05/25/16 08:40 Nasal Cannula 5.00 Humidified 05/25/16 08:05 97.7 85 21 108/56 93 05/25/16 08:03 92 Nasal Cannula 5.00 05/25/16 08:00 72 05/25/16 04:00 97.5 78 18 107/58 93 05/25/16 00:00 98.1 86 18 125/71 92 05/24/16 22:00 Nasal Cannula 5.00 Humidified 05/24/16 20:00 97.6 94 18 132/66 94 05/24/16 20:00 85 05/24/16 19:40 95 Nasal Cannula 5.00 I/O 05/24/16 05/24/16 05/24/16 05/25/16 05/25/16 05/25/16 07:00 15:00 23:00 07:00 15:00 23:00 Intake Total 3007 ml 1345 ml 580 ml 605 ml 1920 ml Output Total 500 ml Balance 3007 ml 845 ml 580 ml 605 ml 1920 ml Intake Oral 990 ml 720 ml 480 ml 480 ml 1920 ml IV Total 2017 ml 625 ml 100 ml 125 ml Output Urine Total 500 ml # Voids 3 2 2 5 # Bowel Movements 0 0 0 0 Result Diagram: 05/25/16 0605/25/16 06 Objective Remarks GENERAL: WBWN WM, mild sob SKIN: Warm and dry. HEAD: Normocephalic. EYES: No scleral icterus. No injection or drainage. NECK: Supple, trachea midline. No JVD or lymphadenopathy. CARDIOVASCULAR: Regular rate and rhythm without murmurs, gallops, or rubs. RESPIRATORY: Breath sounds equal bilaterally. No accessory muscle use. GASTROINTESTINAL: Abdomen soft, non-tender, nondistended. MUSCULOSKELETAL: No cyanosis, or edema. BACK: Nontender without obvious deformity. No CVA tenderness. A/P Assessment and Plan COPD Exac DM AF HTN Ch pain PLAN: Aerosol nebs Symbicort BID Cont Abx Monitor BS PO Steroids Check PFT Jer Duckworth MD May 25, 2016 18:53
[2016-05-25] MEDS ORDERED: SYMB80AE INH (21:19)
[2016-05-25] MEDS ORDERED: PRED10 PO (21:19)
[2016-05-25] MEDS ORDERED: VENTAER INH (21:19)
[2016-05-25] MEDS ORDERED: DOXY100C PO (21:19)
[2016-05-25] MEDS ORDERED: CARD180C5 PO (21:19)
--- NOTE | 2016-05-25 22:02 | HHI.PR ---
Subjective Remarks pt seen this morning. says he is doing much better. sob better, walking around. says he feels like he might be able to go home tomorrow Objective Vital Signs Date Time Temp Pulse Resp B/P Pulse Ox O2 Delivery O2 Flow Rate FiO2 05/25/16 19:42 95 Nasal Cannula 5.00 05/25/16 16:05 97.9 83 19 114/65 92 05/25/16 12:33 97.9 85 20 123/57 93 05/25/16 10:14 5.00 05/25/16 08:40 Nasal Cannula 5.00 Humidified 05/25/16 08:05 97.7 85 21 108/56 93 05/25/16 08:03 92 Nasal Cannula 5.00 05/25/16 08:00 72 05/25/16 04:00 97.5 78 18 107/58 93 05/25/16 00:00 98.1 86 18 125/71 92 05/24/16 22:00 Nasal Cannula 5.00 Humidified I/O 05/24/16 05/24/16 05/24/16 05/25/16 05/25/16 05/25/16 07:00 15:00 23:00 07:00 15:00 23:00 Intake Total 3007 ml 1345 ml 580 ml 605 ml 1920 ml Output Total 500 ml Balance 3007 ml 845 ml 580 ml 605 ml 1920 ml Intake Oral 990 ml 720 ml 480 ml 480 ml 1920 ml IV Total 2017 ml 625 ml 100 ml 125 ml Output Urine Total 500 ml # Voids 3 2 2 5 # Bowel Movements 0 0 0 0 Result Diagram: 05/25/1659905/25/16 06 Objective Remarks GENERAL: Sitting up in chair at bedside SKIN: Warm and dry. HEAD: Normocephalic. EYES: No scleral icterus. No injection or drainage. NECK: Supple, trachea midline. No JVD. CARDIOVASCULAR: Regular rate and rhythm without murmurs, gallops, or rubs. RESPIRATORY: Breath sounds equal bilaterally. No accessory muscle use. Mild shortness of breath.. speaking full sentences. Still with dry crackles in bases BL GASTROINTESTINAL: Abdomen soft, non-tender, nondistended. MUSCULOSKELETAL: No cyanosis, or edema. BACK: Nontender without obvious deformity. No CVA tenderness. A/P Assessment and Plan 61-year-old male with history of atrial fibrillation on Coumadin, diabetes, chronic low back pain, GERD, gout, hypertension and hyperlipidemia, presents with worsening shortness of breath and cough over the past 3 weeks. Acute Respiratory Failure with Hypoxia/Dyspnea: likely multifactorial with pneumonia, COPD exacerbation, see treatment below. Upon arrival, O2 sat 87% on room air, RR 24, HR 113. CXR unremarkable. CT-PA negative for PE, does show COPD with central lobar emphysema; scattered bilateral interstitial infiltrates. Check ABG. Severe Sepsis: patient meets severe sepsis criteria with leukocytosis WBC 22.4K , tachypneic RR 24, tachycardic HR 113, hypotensive with BP 96/63. Give IVF. lactate WNL. Blood cultures NGTD. 05/23. improved. leukocytosis, hr improved. f/u cultures. cont abx for PNA 05/24. Cultures negative to date. Improving. Leukocytosis resolved. Continue antibiotics for pneumonia. -05/25. Cultures continue negative. Etc. doses likely secondary to steroids. Improving. Continue antibiotics. COPD Exacerbation: patient with diffuse wheezing on exam. Continue duonebs q6h kacey and q2h prn. Start Symbicort bid. Consult pulmonology. -05/23 iv solumedrol added 05/24. Much improvement. Switched to prednisone on 05/25. Legionella antigen not drawn. Nursing order. Pneumonia: with b/l infiltrates on CT. S/p IV Cefepime in the ED. -Will continue with IV cefepime and doxyclycine for atypical coverage. - legionella uag pending. -cont alexander rodriguez. -appreciate pulm assist. -05/24 Improving. Continue antibiotics. Atrial Fibrillation with RVR: HR in the 110s in the ED. admit: HR 120s increase Cardizem to 360mg daily. -Monitor on telemetry. INR 3.3 on admit. pharm c/s for Coumadin dosing/monitoring. inr continues therapeutic JORGE LUIS: Cr 1.35, previously 1.26 on 05/08/16. Give IVF. Hold ACEi. -05/24 Improving creatinine. Discontinue IV fluids. -05/25. Kidney function stable. Hypertension: chronic, holding patient's lisinopril with JORGE LUIS as above, also patient still hypotensive. Monitor BP, add antihypertensives as needed. = Blood pressure acceptable. Continue to monitor.hold lisinopril due to cough Diabetes Mellitus: chronic, hold patient's metformin for now. Monitor Accu- cheks and cover with SSI. Diabetic diet. =Blood sugars overall acceptable. Difficult control on steroids. Continue to monitor. Chronic Back Pain: continue patient's Oxycodone prn. GERD: chronic, continue patient's Zantac. Gout: chronic, continue patient's allopurinol. DVT Prophylaxis: on Coumadin Discharge Planning pt lives at home with . anticipate dc hometomorrow. -no need for oxygen at home. Jelani Funk MD May 25, 2016 22:02
[2016-05-26] VITALS: BP 110/56; PULSE 88; RESP 18; TEMP 98.1; O2SAT 94
[2016-05-26 04:00] VITALS: BP 129/60; PULSE 75; RESP 18; TEMP 97.7; O2SAT 92
[2016-05-26] MEDS: CEFEPIME INJ 2,000 MG in SODIUM CHLORIDE 0.9% INJ 100 ML IV SCH ×2 (04:01→12:12)
[2016-05-26] MEDS: INSULIN ASPART SUPPLEMENTAL SCALE SQ SCH ×2 (05:21→11:00)
[2016-05-26] MEDS: GEMFIBROZIL 600 MG TAB PO SCH (06:17)
[2016-05-26 07:19] VITALS: O2SAT 94
[2016-05-26] MEDS: RESP: ALBUTEROL 2.5 MG/IPRATROPIUM 0.5 MG NEB (SCH) NEB ×2 (07:19→13:11)
[2016-05-26 08:00] VITALS: BP 124/89; PULSE 88; PULSE 94; RESP 18; TEMP 97.3; O2SAT 98
[2016-05-26] MEDS: FLUTICASONE PROPIONATE 50 MCG/ACT 16 GM NASAL SPRAY EACH NARE SCH (08:10)
[2016-05-26] MEDS: BUDESONIDE-FORMOTEROL 80/4.5 MCG INHALER INH SCH (08:10)
[2016-05-26] MEDS: ALLOPURINOL 300 MG TAB PO SCH (08:11)
[2016-05-26] MEDS: SODIUM CHLORIDE 0.9% FLUSH 5 ML FLUSH FLUSH SCH (08:11)
[2016-05-26] MEDS: DILTIAZEM-CD 180 MG CAP ER PO SCH (08:11)
[2016-05-26] MEDS: LORATADINE 10 MG TAB PO SCH (08:12)
[2016-05-26] MEDS: PANTOPRAZOLE SOD 20 MG DELAYED RELEASE TAB PO SCH (08:12)
[2016-05-26] MEDS: FAMOTIDINE 20 MG TAB PO SCH (08:12)
[2016-05-26] MEDS: predniSONE 50 MG TAB PO SCH (08:14)
[2016-05-26] MEDS: DOXYCYCLINE HYCLATE 100 MG CAP PO SCH (08:14)
[2016-05-26] MEDS ORDERED: predniSONE 50 MG TAB PO SCH (09:00)
[2016-05-26 10:34] LABS: INTERNATIONAL NORMALIZED RATIO 2.3 RATIO; PROTHROMBIN TIME - PATIENT 25.8 SEC (9.8-11.6)
[2016-05-26 12:00] VITALS: BP 125/73; PULSE 86; RESP 18; TEMP 98; O2SAT 96
--- NOTE | 2016-05-27 09:52 | MB ---
cc: MARTHA BIRD DATE OF CONSULTATION 05/22/[address] Funk REASON FOR CONSULTATION Shortness of breath HISTORY OF PRESENT ILLNESS Mr. Juarez is a pleasant 61-year-old obese male with history of possible COPD, atrial fibrillation and gastroesophageal reflux disease. The patient is from [place]. He moved over here and now follows with the [facility], Dr. Gan. He was recently admitted in this hospital with shortness of breath. He was given nebulizer treatment. The patient came to the hospital with worsening of his shortness of breath over the last few days to the extent that walking to the bathroom is difficult for him. He has cough and congestion, talking makes his cough worse. He did not have any chest pain. No nausea or vomiting. With these symptoms, he came to the hospital. He had a workup done. He had a CT of the chest done that shows no pulmonary embolism, has chronic obstructive pulmonary disease with central lobular emphysema. His WBC count is 22.4, hemoglobin 15.2, hematocrit 45.4 MCV 95, platelet count 253. Sodium 130, potassium 4.5, chloride 110, CO2 19, BUN 23, creatinine 1.35. PAST MEDICAL HISTORY 1. History of atrial fibrillation, 2. Hypertension, 3. Gastroesophageal reflux disease, 4. Diabetes mellitus, 5. Hyperlipidemia, 6. History of tonsillectomy. MEDICATIONS Currently taking 1. Coumadin 7.5 mg 2. Diltiazem 360 mg a day 4. Protonix 20 mg a day 5. Gemfibrozil 600 mg twice a day. 6. Insulin. 7. Symbicort 80/4.5 one puff twice a day. 8. Famotidine 20 mg twice a day. 9. Doxycycline 100 mg twice a day, 10. Cefepime 2 grams q. 8-hour. ALLERGIES NO KNOWN DRUG ALLERGIES. SOCIAL HISTORY History of smoking up to two packs a day until age 47 and he quit smoking. He used to drink before. He used to work for the [employer]. FAMILY HISTORY He is . He has one son and grandchildren. REVIEW OF SYSTEMS Normally he is up, around and active. Weight is stable. No headache or dizziness. No malignancy. No DVT or pulmonary embolism. PHYSICAL EXAMINATION GENERAL: Well-nourished male mildly short of breath not in any acute distress. VITAL SIGNS: Blood pressure 110/59, heart rate 80, respirations 16, temperature 98, saturation 92% on 3 liters nasal cannula. HEENT: Pupils are equal and reactive to light. Oral mucosa and nasal mucosa normal. NECK: Supple, JVP not raised. CHEST: She has end-expiratory rhonchi. CARDIOVASCULAR: S1, S2 normal. ABDOMEN: Benign. EXTREMITIES: No edema. IMPRESSION 1. COPD exacerbation 2. Hypoxia. No pulmonary embolism 3. Atrial fibrillation 4. Hypertension. PLAN We will supplement his oxygen, aerosol treatment. We will increase his Symbicort 160/4.5 two puffs twice a day. Monitor his oxygen saturation, monitor blood sugar. His INR is therapeutic. Further treatment will depend on the course in the hospital. Thank you, Dr. Funk, for this consultation. MD YAJAIRA Michael/ /6:57 PM /9:49 AM BOLA
--- NOTE | 2016-06-01 01:15 | HHI.DS ---
Discharge Summary Admission Date May 22, 2016 at 12:57 Discharge Date: May 26, 2016 Admitting Diagnosis pneumonia. Hypoxemia. (1) CAP (community acquired pneumonia) ICD Code: J18.9 (2) Hypoxemia ICD Code: R09.02 (3) A-fib ICD Code: I48.91 Procedures no invasive procedures performed. Brief History - From Admission 61-year-old male with history of atrial fibrillation on Coumadin, diabetes, chronic low back pain, GERD, gout, hypertension and hyperlipidemia, presents with worsening shortness of breath and cough over the past 3 weeks. The patient was admitted to [facility] 05/08/16-05/09/16 for pneumonia, URI, given Rocephin/Azithro and discharged on Azithro course; also afib RVR and Cardizem increased to 240mg at that time. The patient reports since he was discharged, he has been experiencing worsening shortness of breath and lightheadedness. Also reports a persistent dry nonproductive cough. He reports chills, body sweats, but has not checked his temperature at home. He does have a nebulizer machine which he has been using with some relief. He does not wear oxygen at home. Denies any congestion, sore throat, body aches. Denies chest pains or palpitations. He was seen at the [facility] and referred to the ER for further evaluation. Upon arrival to the ER, O2 sat 87% on room air, RR 24, HR 113, BP 100/57. CXR unremarkable. CT-PA negative for PE, does show COPD with central lobar emphysema; scattered bilateral interstitial infiltrates. The patient was given IV Cefepime, duoneb, and oxygen with some relief. O2 sat now 92% on 3L NC. Imaging Last Impressions CT Angiography 05/22/16 1131 Signed Impressions: Service Date/Time: Sunday, May 22, 2016 11:50 - CONCLUSION: 1. No evidence of pulmonary embolism. 2. COPD with central lobar emphysema. 3. Scattered bilateral interstitial infiltrates which could be on a chronic or acute basis. Luis M Joiner MD Chest X-Ray 05/22/16 1032 Signed Impressions: Service Date/Time: Sunday, May 22, 2016 10:31 - CONCLUSION: No acute disease. Luis M Joiner MD Hospital Course Patient was treated for community-acquired pneumonia with antibiotics, steroids , nebs. CT angiogram negative for pulmonary embolism., However scattered bilateral interstitial infiltrates. Oxygenation improved. Patient and exacerbation of atrial fibrillation, for which he will need increased dose of diltiazem. He was discharged with prednisone taper, doxycycline to complete treatment course. For problem-based summary from most recent progress note, please see below. 61-year-old male with history of atrial fibrillation on Coumadin, diabetes, chronic low back pain, GERD, gout, hypertension and hyperlipidemia, presents with worsening shortness of breath and cough over the past 3 weeks. Acute Respiratory Failure with Hypoxia/Dyspnea: likely multifactorial with pneumonia, COPD exacerbation, see treatment below. Upon arrival, O2 sat 87% on room air, RR 24, HR 113. CXR unremarkable. CT-PA negative for PE, does show COPD with central lobar emphysema; scattered bilateral interstitial infiltrates. Check ABG. Severe Sepsis: patient meets severe sepsis criteria with leukocytosis WBC 22.4K , tachypneic RR 24, tachycardic HR 113, hypotensive with BP 96/63. Give IVF. lactate WNL. Blood cultures NGTD. 05/23. improved. leukocytosis, hr improved. f/u cultures. cont abx for PNA 05/24. Cultures negative to date. Improving. Leukocytosis resolved. Continue antibiotics for pneumonia. -05/25. Cultures continue negative. Etc. doses likely secondary to steroids. Improving. Continue antibiotics. COPD Exacerbation: patient with diffuse wheezing on exam. Continue duonebs q6h kacey and q2h prn. Start Symbicort bid. Consult pulmonology. -05/23 iv solumedrol added 05/24. Much improvement. Switched to prednisone on 05/25. Legionella antigen not drawn. Nursing order. Pneumonia: with b/l infiltrates on CT. S/p IV Cefepime in the ED. -Will continue with IV cefepime and doxyclycine for atypical coverage. - legionella uag pending. -cont tessalon jennifer. -appreciate pulm assist. -05/24 Improving. Continue antibiotics. Atrial Fibrillation with RVR: HR in the 110s in the ED. admit: HR 120s increase Cardizem to 360mg daily. -Monitor on telemetry. INR 3.3 on admit. pharm c/s for Coumadin dosing/monitoring. inr continues therapeutic JORGE LUIS: Cr 1.35, previously 1.26 on 05/08/16. Give IVF. Hold ACEi. -05/24 Improving creatinine. Discontinue IV fluids. -05/25. Kidney function stable. Hypertension: chronic, holding patient's lisinopril with JORGE LUIS as above, also patient still hypotensive. Monitor BP, add antihypertensives as needed. = Blood pressure acceptable. Continue to monitor.hold lisinopril due to cough Diabetes Mellitus: chronic, hold patient's metformin for now. Monitor Accu- cheks and cover with SSI. Diabetic diet. =Blood sugars overall acceptable. Difficult control on steroids. Continue to monitor. Chronic Back Pain: continue patient's Oxycodone prn. GERD: chronic, continue patient's Zantac. Gout: chronic, continue patient's allopurinol. DVT Prophylaxis: on Coumadin Discharge Planning pt lives at home with . anticipate dc hometomorrow. -no need for oxygen at home. Pt Condition on Discharge: Good Discharge Disposition: Discharge Home Discharge Time: <= 30 minutes Discharge Instructions DIET: Follow Instructions for: Diabetic Diet Activities you can perform: Regular-No Restrictions Follow up Referrals: PCP Follow-up - 1 Week Pulmonology - 1 Week with Jer Duckworth MD New Medications: Prednisone (Prednisone) 10 Mg Tab 10 MG PO DAILY Take 40mg daily for 3 days; 20mg daily for 3 days; 10mg daily for 3 days, then stop. COPD #21 Ref 0 TAB Budesonide-Formoterol Inh (Symbicort Inh) 80-4.5 Mcg/Act Aero 2 PUFF INH Q12HR COPD Days 30 INHALER Diltiazem CD 24 HR (Cardizem CD 24 HR) 180 Mg Caper 360 MG PO DAILY heart Days 30 CAP Doxycycline Hyclate (Doxycycline Hyclate) 100 Mg Cap 100 MG PO BID infection Days 7 CAP Continued Medications: Albuterol 18 GM Inh (Ventolin Hfa 18 GM Inh) 90 Mcg/Act Aer 2 PUFF INH Q4-6H PRN SHORTNESS OF BREATH #1 Ref 0 INHALER (This prescription has been renewed) Allopurinol (Allopurinol) 300 Mg Tab 300 MG PO BID Gout #30 Ref 0 TAB Gemfibrozil (Gemfibrozil) 600 Mg Tab 600 MG PO BIDAC Take 30 minutes prior to breakfast and dinner. #60 Ref 0 TAB Loratadine (Loratadine) 10 Mg Tab 10 MG PO DAILY Allergy Management Ref 0 TAB Metformin (Metformin) 500 Mg Tab 500 MG PO BIDPC With meals Blood Sugar Management #60 Ref 0 TAB Omeprazole (Omeprazole) 20 Mg Tab 20 MG PO DAILY #30 Ref 0 TAB Oxycodone (Oxycodone) 5 Mg Cap 5 MG PO Q8H Pain Management Ref 0 CAP Ranitidine (Ranitidine) 300 Mg Tab 300 MG PO HS Heartburn Management #30 Ref 0 TAB Salsalate (Salsalate) 500 Mg Tab 500 MG PO BID Arthritis #90 Ref 0 TAB Warfarin (Warfarin) 5 Mg Tab 5 MG PO SuTuThFrSa @ HS Blood Clot Prevention #30 Ref 0 TAB Warfarin (Warfarin) 7.5 Mg Tab 7.5 MG PO MoWe @ HS Blood Clot Prevention #30 Ref 0 TAB Discontinued Medications: Diclofenac Topical (Diclofenac Topical) 1% Gel 1 APPLIC TOPICAL QID Pain Management #100 Ref 0 GM Diltiazem CD 24 HR (Diltiazem CD 24 HR) 240 Mg Caper 240 MG PO HS #30 Ref 0 CAP Lisinopril (Lisinopril) 40 Mg Tab 40 MG PO DAILY Blood Pressure Management #30 Ref 0 TAB Jelani Funk MD Jun 01, 2016 01:15
== END 2016-05-26 14:41 | disposition home or self-care (01) | DRG 871 ==
LOC: NEPA 10:00 → NEDA 12:57 → N04B 18:58 → N04A 05-24 14:11
PROVIDERS: ADMIT Internal Medicine; ATTEND Internal Medicine
PROC: 3E0F7GC Introduction of Other Therapeutic Substance into Respiratory Tract, Via Natural or Artificial Opening (ICD-10-PCS; principal; 2016-05-22)
DX: A41.9 Sepsis, unspecified organism (principal); J96.01 Acute respiratory failure with hypoxia; J18.9 Pneumonia, unspecified organism; N17.9 Acute kidney failure, unspecified; I48.91 Unspecified atrial fibrillation; J44.1 Chronic obstructive pulmonary disease with (acute) exacerbation; I10 Essential (primary) hypertension; Z79.01 Long term (current) use of anticoagulants; E11.9 Type 2 diabetes mellitus without complications; E78.5 Hyperlipidemia, unspecified; M19.90 Unspecified osteoarthritis, unspecified site; E78.00 Pure hypercholesterolemia, unspecified; K21.9 Gastro-esophageal reflux disease without esophagitis; M10.9 Gout, unspecified; Z87.891 Personal history of nicotine dependence; Z79.84 Long term (current) use of oral hypoglycemic drugs; G89.29 Other chronic pain; M54.5 Low back pain; Z66 Do not resuscitate
CPT/HCPCS: 36600; 71010; 71275; 80048; 80053; 80069; 82805; 82948; 83605; 83735; 83880; 85025; 85610; 85730; 87040; 87449; 87804; 93005; 93306; 94620; 94640; 94664; 96365; J0692; J1815; J2920; J7030; J7512; Q9967